=== PATIENT | male | born 1985 | race Two or more races ===

== ENCOUNTER 2021-04-27 11:12 | Outpatient (REF) | payer MEDICAID, SELFPAY ==
[2021-04-27 14:06] LABS: MANUAL DIFF FLAG NO
[2021-04-27 14:12] LABS: Basophils Percent Auto 0.4 % (0-2); Eosinophils Absolute Auto 0.1 X10*3/uL (0.0-0.4); Eosinophils Percent Auto 1.3 % (0-4); Hematocrit 42.5 % (42-52); Hemoglobin 14.9 g/dl (14.0-18.0); Imm Gran Abs Auto 0.02 X10*3/uL (0.00-0.03); Imm Gran Pct Auto 0.2 % (0.0-0.4); Lymphocytes Absolute Auto 3.2 X10*3/uL (1.2-4.9); Lymphocytes Percent Auto 38.2 % (20-40); Mean Corpuscular HGB Conc 35.1 g/dl (31.0-36.0); Mean Corpuscular Hemoglobin 30.3 pg (27.0-33.0); Mean Corpuscular Volume 86.6 fL (80-98); Mean Platelet Volume 10.8 fL (9.4-12.4); Monocytes Absolute Auto 0.6 X10*3/uL (0.1-1.2); Monocytes Percent Auto 7.6 % (2-11); Neutrophils Absolute Auto 4.4 X10*3/uL (2.0-8.3); Neutrophils Percent Auto 52.3 % (45-73); Platelet Count 350 X10*3/uL (160-400); Red Blood Count 4.91 X10*6/uL (4.60-5.80); White Blood Count 8.5 X10*3/uL (4.8-10.8)
[2021-04-27 14:50] LABS: Alanine Aminotransferase 75 U/L (0-40); Albumin Level 4.3 g/dL (3.5-5.0); Alkaline Phosphatase 73 U/L (39-117); Anion Gap 11 (12-20); Aspartate Amino Transferase 30 U/L (5-37); Bilirubin Total 0.5 mg/dL (0.0-1.0); Blood Urea Nitrogen 11 mg/dL (9-16); C Reactive Protein 0.25 mg/dL (< or = 0.50); Calcium 9.1 mg/dL (8.4-10.2); Carbon Dioxide 25 mmol/L (22-29); Chloride 103 mmol/L (96-108); Estimated Glomerular Filt Rate > 60; Glucose Fasting 202 mg/dL (60-99); Potassium 4.3 mmol/L (3.3-5.1); Sodium 135 mmol/L (135-145); Total Protein 6.8 g/dL (6.5-8.0)
== END 2021-04-27 11:13 | disposition home or self-care (01) ==
LOC: HO.10HDL 11:12
PROVIDERS: Visit Provider Internal Medicine
DX: M54.9 Dorsalgia, unspecified (principal); Z83.6 Family history of other diseases of the respiratory system
CPT/HCPCS: 36415; 80053; 82550; 85025; 86140

== ENCOUNTER 2021-05-05 07:10 | Outpatient (REF) | payer MEDICAID, SELFPAY ==
--- NOTE | ~2021-05-05 | XR_ITS ---
EXAMINATION: CR X-RAY PRE-MRI SCREENING CLINICAL INFORMATION: Pre-MRI screening, rule out foreign body. COMPARISON: None TECHNIQUE: 3 views of the orbits were obtained. FINDINGS: No radiopaque foreign body is seen. The bony orbits are intact. The paranasal sinuses are clear. There is no acute fracture. The soft tissues are unremarkable. XR/XR pre mri screening IMPRESSION: Unremarkable orbits. No radiopaque foreign body.
--- NOTE | ~2021-05-05 | MR_ITS ---
EXAMINATION: MR THORACIC SPINE WITHOUT CONTRAST CLINICAL INFORMATION: Back pain. Right arm weakness, numbness, finger numbness or weakness. Thoracic strain. Evaluate for cord injury. COMPARISON: Thoracic spine radiographs dated 03/19/2019. TECHNIQUE: MRI of the thoracic spine was obtained using routine sequences without contrast. FINDINGS: VERTEBRAL BODIES AND PARASPINAL STRUCTURES: Normal vertebral body alignment. The thoracic kyphosis is maintained. No acute fracture or subluxation. No loss of vertebral body height. Mild multilevel loss of intervertebral disc height with disc desiccation within the midthoracic spine. No marrow edema to suggest acute osseous injury. The visualized paraspinal soft tissues are unremarkable. No abnormal signal within the visualized cord. No evidence of cord injury. Probable vertebral body hemangioma within T8. SPINAL LEVELS: C7-T1: No significant disc bulge. No central canal or neural foraminal stenosis. T1-T2: No significant disc bulge. No central canal or neural foraminal stenosis. T2-T3: No significant disc bulge. No central canal or neural foraminal stenosis. T3-T4: No significant disc bulge. No central canal or neural foraminal stenosis. T4-T5: No significant disc bulge. No central canal or neural foraminal stenosis. T5-T6: No significant disc bulge. No central canal or neural foraminal stenosis. T6-T7: No significant disc bulge. No central canal or neural foraminal stenosis. T7-T8: Minimal broad-based disc bulge which partially effaces the ventral thecal sac. No significant neural foraminal stenosis. T8-T9: No significant disc bulge. No central canal or neural foraminal stenosis. T9-T10: No significant disc bulge. No central canal or neural foraminal stenosis. T10-T11: No significant disc bulge. No central canal or neural foraminal stenosis. T11-T12: No significant disc bulge. No central canal or neural foraminal stenosis. T12-L1: No significant disc bulge. No central canal or neural foraminal stenosis. MR/MR thoracic spine wo con IMPRESSION: 1. No acute osseous injury. No evidence of acute cord injury. 2. Minimal broad-based disc bulge at T7-T8 which partially effaces the ventral thecal sac. No significant central canal or neural foraminal stenosis.
== END 2021-05-05 07:11 | disposition home or self-care (01) ==
LOC: HO.MRI 07:10
PROVIDERS: PCP Internal Medicine; Visit Provider Internal Medicine
DX: S29.012A Strain of muscle and tendon of back wall of thorax, initial encounter (principal); V89.2XXA Person injured in unspecified motor-vehicle accident, traffic, initial encounter; Y93.9 Activity, unspecified; Y92.9 Unspecified place or not applicable; Y99.9 Unspecified external cause status
CPT/HCPCS: 72146

== ENCOUNTER 2021-06-15 12:58 | Outpatient (REF) | payer MEDICAID, SELFPAY ==
[2021-06-15 13:55] LABS: Anion Gap 14 (12-20); Blood Urea Nitrogen 12 mg/dL (9-16); Calcium 9.7 mg/dL (8.4-10.2); Carbon Dioxide 23 mmol/L (22-29); Chloride 102 mmol/L (96-108); Estimated Glomerular Filt Rate > 60; Glucose Random 383 mg/dL (60-115); Potassium 4.4 mmol/L (3.3-5.1); Sodium 135 mmol/L (135-145)
[2021-06-15 14:22] LABS: Estimated Average Glucose 266 mg/dL; Hemoglobin A1c % 10.9 %
[2021-06-16 04:41] LABS: ~HepC Num1 0.09 S/CO (0.00-0.79); ~Hepatitis C Antibody Nonreactive (Nonreactive)
[2021-06-16 04:51] LABS: ~Hepatitis B Surface Antibody NONREACTIVE (Nonreactive)
== END 2021-06-15 12:59 | disposition home or self-care (01) ==
LOC: HO.LAB 12:58
PROVIDERS: PCP Internal Medicine; Visit Provider Internal Medicine
DX: Z01.84 Encounter for antibody response examination (principal); Z11.59 Encounter for screening for other viral diseases; R73.9 Hyperglycemia, unspecified
CPT/HCPCS: 36415; 80048; 83036; 86706; 86803

== ENCOUNTER 2021-12-06 09:28 | Emergency (ER) | payer MEDICAID, SELFPAY ==
--- NOTE | ~2021-12-06 | CT_ITS ---
EXAMINATION: CT ABDOMEN AND PELVIS WITHOUT CONTRAST CLINICAL INFORMATION: Left lower quadrant pain COMPARISON: None TECHNIQUE: Multidetector volumetric imaging was performed from the superior aspect of the liver through the pubic symphysis. Sagittal and coronal reformatted images were obtained on the technologist's workstation. This CT examination was performed using dose optimization techniques as appropriate, variously including the following: *Automated exposure control *Adjustment of mA and/or kV according to patient size (this includes techniques or standardized protocols for targeted exams where dose is matched to indication/reason for exam; i.e. extremities or head) *Use of iterative reconstruction technique DLP: 673 mGy-cm FINDINGS: LUNG BASES: The visualized lung bases are unremarkable. LIVER, GALLBLADDER, AND BILIARY TREE: The liver is normal in size, shape, and attenuation. No focal hepatic lesion or biliary ductal dilatation is present. The gallbladder is unremarkable with no evidence of radiopaque gallstones, gallbladder wall thickening, or obvious pericholecystic inflammatory changes. PANCREAS: Unremarkable. SPLEEN: Unremarkable. ADRENAL GLANDS: Unremarkable. KIDNEYS AND URETERS: The kidneys are normal in size, shape, and attenuation. No hydronephrosis, hydroureter, or calculi seen. No perinephric stranding. BLADDER: Unremarkable. GASTROINTESTINAL TRACT: There is mild diverticulosis colon. The small and large bowel are otherwise unremarkable. The appendix is unremarkable. ABDOMINAL WALL: There is a small umbilical and right inguinal hernias containing fat. LYMPH NODES: Normal. VASCULAR: Unremarkable. PELVIC VISCERA: Unremarkable. OSSEOUS STRUCTURES: Unremarkable. CT/CT abdomen pelvis wo con IMPRESSION: Mild diverticulosis colon. No evidence of diverticulitis. Fleischner guidelines were followed.
[2021-12-06 09:37] VITALS: BP 123/80; PULSE 83; RESP 16; TEMP 36.9; O2SAT 99; BMI 33.3
--- NOTE | 2021-12-06 09:45 | ED.ABDPAIN ---
HPI - Abdominal Pain General Chief Complaint: Abdominal Pain Stated Complaint: N/V Time Seen by Provider: 12/06/21 09:34 Source: patient Mode of arrival: EMS Limitations: no limitations History of Present Illness HPI narrative: 35 yo male with hx of DM on glipizide since july does not check his sugars. States one week ago he was bored and sice then he feels just unwell. He has palpitations at times, LLQ pain, diarrhea, states his therapist told him his BS might be off. He has not been on any anxiety medications in the past. He denies known depression, isn't working right now, lives with his fiancee. MD elicited complaint: abdominal pain Pertinent past history: none Onset (ago): week(s) (1) Pain Consistency: intermittent Location: LLQ Severity: mild Quality: aching Radiation: none Migration to: no migration Exacerbating factors: nothing Relieving factors: nothing Context: other (new dx of DM, anxiety - therapy since april no medications) Associated symptoms: nausea, diarrhea and other (palpitations, anxiety, dizziness at time) Related Data Allergies Allergy/AdvReac Type Severity Reaction Status Date / Time No Known Allergies Allergy Unverified 05/13/20 19:36 [No Known Allergies*] Review of Systems Review of Systems Constitutional : No Weight loss, No Fever, No Chills ENT/Mouth : No sore throat, No Rhinorrhea Eyes: No Swelling, No Redness Cardiovascular : No Chest Pain, No SOB, NoEdema Respiratory : No Cough, No Sputum, No Wheezing Gastrointestinal : Positive Nausea, no Vomiting, positive Diarrhea, positive abdominal Pain, No Hematochezia, No Melena Genitourinary : No Dysuria, No Urinary Frequency, No Hematuria, No Urgency Musculoskeletal : No joint pain, No Myalgias, No Joint Swelling Skin : No Skin Lesions, No rash Neuro : No Weakness, No Numbness, pos Dizziness, No Headache Psych : pos Anxiety/Panic, No Depression Heme/Lymph: No Bruising, No Lymphadenopathy Endocrine : No Polyuria, No Polydipsia All other systems reviewed and are negative. FOR[facility]LY [facility] Past Medical History Medical History Diabetes Social History Social History Patient Tobacco Use Status: Never used Tobacco Substance Use Type: Marijuana Advance Directives: No Advance Directives Information Provided: No Physical Exam ED Vital Signs: Vital Signs - 24 hr 12/06/21 09:37 Temperature 98.4 F Pulse Rate 83 Respiratory Rate 16 Blood Pressure 123/80 Pulse Oximetry 99 BMI result Body Mass Index 33.3 Appearance: Alert. Oriented X3. No acute distress. Very anxious Eyes: Pupils equal, round and reactive to light. ENT: Pharynx normal. Neck: Normal inspection. Neck supple. CVS: Normal heart rate and rhythm. Pulses normal. Respiratory: No respiratory distress. Breath sounds normal. Abdomen: Soft and obese, mild LLQ ttp no rebound Skin: Skin warm and dry. Normal skin color. Normal skin turgor. Extremities: No lower extremity edema. No calf ttp Neuro: Oriented X 3. No motor deficit. No sensory deficit. Course Course Course Narrative: BS 146, has no gap, UA likely dehydration will hydrate and DC home discussed with the patient he needs to see his doctor as well in follow up to discuss his [place] terminal agent anxiety MDM - Abdominal Pain MDM Narrative Medical decision making narrative: 35 yo male with hx of DM since july on glipizide but not checking BS, he has been in therapy as well for anxiety - not on medications comes in with several complaints including palpitations, dizziness, diarrhea, LLQ pain - at this time he is very anxious on exam. Will obtain labs, UA, CT scan for diverticulitis/renal colic. IVF, toradol/zofran for symptoms. If negative may start on PRN anxiety medication if necessary. Lab Data Result diagrams: 12/06/21 09:54 12/06/21 09:54 Labs: Lab Results 12/06/21 12/06/21 12/06/21 Range/Units 09:54 09:54 09:54 WBC 9.9 (4.8-10.8) X10*3/uL RBC 4.64 (4.60-5.80) X10*6/uL Hgb 14.3 (14.0-18.0) g/dl Hct 39.9 L (42.0-52.0) % MCV 86.0 (80.0-98.0) fL MCH 30.8 (27.0-33.0) pg MCHC 35.8 (31.0-36.0) g/dl RDW 12.3 (11.0-16.0) % Plt Count 358 (160-400) X10*3/uL MPV 10.2 (9.4-12.4) fL Immature Gran % (Auto) 0.2 (0.0-0.4) % Neut % (Auto) 68.4 (45-73) % Lymph % (Auto) 24.2 (20-40) % [place] % (Auto) 6.3 (2-11) % Eos % (Auto) 0.6 (0-4) % Baso % (Auto) 0.3 (0-2) % Lymph # (Auto) 2.4 (1.2-4.9) X10*3/uL [place] # (Auto) 0.6 (0.1-1.2) X10*3/uL Eos # (Auto) 0.1 (0.0-0.4) X10*3/uL Baso # (Auto) 0.0 (0.0-0.2) X10*3/uL Abs Immat Gran (auto) 0.02 (0.00-0.03) X10*3/uL Absolute Neuts (auto) 6.8 (2.0-8.3) x10*3/uL Absolute Nucleated RBC 0.000 (0.0-0.012) X10*3/uL Nucleated RBC % (auto) 0.0 (0.0-0.2) /100WBC Sodium 137 (135-145) mmol/L Potassium 4.2 (3.3-5.1) mmol/L Chloride 107 (96-108) mmol/L Carbon Dioxide 21 L (22-29) mmol/L Anion Gap 13 (12-20) BUN 10 (9-16) mg/dL Creatinine 0.93 (0.5-1.4) mg/dL Estim Creat Clear Calc 114.7 Estimated GFR > 60 Random Glucose 146 H D (60-115) mg/dL Calcium 9.6 (8.4-10.2) mg/dL Magnesium 2.3 (1.6-2.6) mg/dL Total Bilirubin 0.6 (0.0-1.0) mg/dL Direct Bilirubin 0.2 (0.0-0.5) mg/dL AST 25 (5-37) U/L ALT 40 (0-40) U/L Alkaline Phosphatase 67 (39-117) U/L Troponin I High Sens < 3.5 (<3.5-35.0) ng/L Total Protein 7.3 (6.5-8.0) g/dL Albumin 4.3 (3.5-5.0) g/dL Lipase 17 (8-78) U/L Urine Color Urine Appearance Urine pH (5.0-8.0) Ur Specific [place] (1.005-1.025) Urine Protein (NEG-TRACE) MG/DL Urine Glucose (UA) (NEG) MG/DL Urine Ketones (NEG) MG/DL Urine Blood (NEG) Urine Nitrite (NEG) Ur Leukocyte Esterase (NEG) 12/06/21 Range/Units 11:52 WBC (4.8-10.8) X10*3/uL RBC (4.60-5.80) X10*6/uL Hgb (14.0-18.0) g/dl Hct (42.0-52.0) % MCV (80.0-98.0) fL MCH (27.0-33.0) pg MCHC (31.0-36.0) g/dl RDW (11.0-16.0) % Plt Count (160-400) X10*3/uL MPV (9.4-12.4) fL Immature Gran % (Auto) (0.0-0.4) % Neut % (Auto) (45-73) % Lymph % (Auto) (20-40) % [place] % (Auto) (2-11) % Eos % (Auto) (0-4) % Baso % (Auto) (0-2) % Lymph # (Auto) (1.2-4.9) X10*3/uL [place] # (Auto) (0.1-1.2) X10*3/uL Eos # (Auto) (0.0-0.4) X10*3/uL Baso # (Auto) (0.0-0.2) X10*3/uL Abs Immat Gran (auto) (0.00-0.03) X10*3/uL Absolute Neuts (auto) (2.0-8.3) x10*3/uL Absolute Nucleated RBC (0.0-0.012) X10*3/uL Nucleated RBC % (auto) (0.0-0.2) /100WBC Sodium (135-145) mmol/L Potassium (3.3-5.1) mmol/L Chloride (96-108) mmol/L Carbon Dioxide (22-29) mmol/L Anion Gap (12-20) BUN (9-16) mg/dL Creatinine (0.5-1.4) mg/dL Estim Creat Clear Calc Estimated GFR Random Glucose (60-115) mg/dL Calcium (8.4-10.2) mg/dL Magnesium (1.6-2.6) mg/dL Total Bilirubin (0.0-1.0) mg/dL Direct Bilirubin (0.0-0.5) mg/dL AST (5-37) U/L ALT (0-40) U/L Alkaline Phosphatase (39-117) U/L Troponin I High Sens (<3.5-35.0) ng/L Total Protein (6.5-8.0) g/dL Albumin (3.5-5.0) g/dL Lipase (8-78) U/L Urine Color YELLOW Urine Appearance HAZY Urine pH 6.0 (5.0-8.0) Ur Specific [place] >= 1.030 H (1.005-1.025) Urine Protein TRACE (NEG-TRACE) MG/DL Urine Glucose (UA) NEG (NEG) MG/DL Urine Ketones 15 (NEG) MG/DL Urine Blood NEG (NEG) Urine Nitrite NEG (NEG) Ur Leukocyte Esterase NEG (NEG) ECG Data Attestation: I personally reviewed and interpreted this ECG as follows: ECG interpretation date: 12/06/21 ECG interpretation time: 10:23 Interpretation: Rate: 69 Rhythm: NSR [place]: normal Normal P waves. Normal GEE. Normal QRS complex. ST T wave : normal no GERMÁN qTC: normal prior studies: no acute ischemia The study has been interpreted contemporaneously by me. Discharge Plan Discharge Clinical Impression: Heart palpitations, Acute dehydration Diarrhea Qualifiers: Diarrhea type: unspecified type Qualified Code(s): R19.7 - Diarrhea, unspecified Patient Disposition: Home, Self-Care Instructions: Heart Palpitations (ED), Dehydration (ED), Acute Diarrhea (ED) Additional Instructions: return to ED for any worsening symptoms or concerns CT scan negative, BS 146, mild dehydration please follow up with your doctor Referrals: Abdiel Atkinson MD [Primary Care Provider] - 2 days
[2021-12-06] MEDS: 0.9 % Sodium Chloride 1,000 ML 999 ML IVCONT (09:58)
[2021-12-06] MEDS: ondansetron HCL 4 MG/2 ML VIAL IVPUSH (09:58)
[2021-12-06] MEDS: Ketorolac Tromethamine 15 MG/ML VIAL 30 MG IVPUSH (09:59)
[2021-12-06 10:01] LABS: MANUAL DIFF FLAG NO
--- NOTE | 2021-12-06 10:01 | ECG_ITS ---
Test Reason : abdominal pain Blood Pressure : / mmHG Vent. Rate : 069 BPM Atrial Rate : 069 BPM P-R Int : 136 ms QRS Dur : 098 ms QT Int : 402 ms P-R-T Axes : -16 036 010 degrees QTc Int : 430 ms Normal sinus rhythm Normal ECG No previous ECGs available Referred By: Becca Butler Electronically Signed By:Leo Lux
[2021-12-06 10:04] LABS: Basophils Percent Auto 0.3 % (0-2); Eosinophils Absolute Auto 0.1 X10*3/uL (0.0-0.4); Eosinophils Percent Auto 0.6 % (0-4); Hematocrit 39.9 % (42.0-52.0); Hemoglobin 14.3 g/dl (14.0-18.0); Imm Gran Abs Auto 0.02 X10*3/uL (0.00-0.03); Imm Gran Pct Auto 0.2 % (0.0-0.4); Lymphocytes Absolute Auto 2.4 X10*3/uL (1.2-4.9); Lymphocytes Percent Auto 24.2 % (20-40); Mean Corpuscular HGB Conc 35.8 g/dl (31.0-36.0); Mean Corpuscular Hemoglobin 30.8 pg (27.0-33.0); Mean Platelet Volume 10.2 fL (9.4-12.4); Monocytes Absolute Auto 0.6 X10*3/uL (0.1-1.2); Monocytes Percent Auto 6.3 % (2-11); Neutrophils Absolute Auto 6.8 x10*3/uL (2.0-8.3); Neutrophils Percent Auto 68.4 % (45-73); Platelet Count 358 X10*3/uL (160-400); Red Blood Count 4.64 X10*6/uL (4.60-5.80); Red Cell Distribution Width 12.3 % (11.0-16.0); White Blood Count 9.9 X10*3/uL (4.8-10.8)
[2021-12-06 10:25] LABS: Alanine Aminotransferase 40 U/L (0-40); Albumin Level 4.3 g/dL (3.5-5.0); Alkaline Phosphatase 67 U/L (39-117); Anion Gap 13 (12-20); Aspartate Amino Transferase 25 U/L (5-37); Bilirubin Direct 0.2 mg/dL (0.0-0.5); Bilirubin Total 0.6 mg/dL (0.0-1.0); Blood Urea Nitrogen 10 mg/dL (9-16); Calcium 9.6 mg/dL (8.4-10.2); Carbon Dioxide 21 mmol/L (22-29); Chloride 107 mmol/L (96-108); Creatinine Clr Calc Pharmacy 114.7; Estimated Glomerular Filt Rate > 60; Glucose Random 146 mg/dL (60-115); Lipase 17 U/L (8-78); Magnesium 2.3 mg/dL (1.6-2.6); Potassium 4.2 mmol/L (3.3-5.1); Sodium 137 mmol/L (135-145); Total Protein 7.3 g/dL (6.5-8.0)
[2021-12-06 10:37] LABS: Troponin-I High Sensitivity < 3.5 ng/L (<3.5-35.0)
[2021-12-06 11:56] LABS: Appearance Urine HAZY; Color Urine YELLOW; Glucose Urine UA NEG (NEG); Leukocyte Esterase Urine NEG (NEG); Nitrite Urine NEG (NEG); Specific Gravity - Urine >= 1.030 (1.005-1.025); Urine Blood NEG (NEG); Urine Ketones 15 MG/DL (NEG); Urine Protein TRACE MG/DL (NEG-TRACE)
[2021-12-06] MEDS: 0.9 % Sodium Chloride 1,000 ML 999 ML IV (12:12)
== END 2021-12-06 13:10 | disposition home or self-care (01) ==
PROVIDERS: Emergency Provider Emergency Medicine; PCP Internal Medicine
DX: R00.2 Palpitations (principal); E86.0 Dehydration; R19.7 Diarrhea, unspecified; R10.32 Left lower quadrant pain; R11.2 Nausea with vomiting, unspecified; E11.9 Type 2 diabetes mellitus without complications
CPT/HCPCS: 36415; 74176; 80048; 80076; 81003; 83690; 83735; 84484; 85025; 93005; 96361; 96374; 96375; 99284; 99285; J1885; J2405

== ENCOUNTER 2021-12-22 09:36 | Outpatient (REF) | payer MEDICAID, SELFPAY ==
[2021-12-22 11:13] LABS: Estimated Average Glucose 140 mg/dL; Hemoglobin A1c % 6.5 %
[2021-12-22 11:17] LABS: Microalbum/Creatinine Ratio Ur 10.9 ug/mg cr
[2021-12-22 12:20] LABS: Anion Gap 12 (12-20); Blood Urea Nitrogen 12 mg/dL (9-16); Calcium 9.5 mg/dL (8.4-10.2); Carbon Dioxide 24 mmol/L (22-29); Chloride 105 mmol/L (96-108); Estimated Glomerular Filt Rate > 60; Glucose Random 118 mg/dL (60-115); Potassium 4.4 mmol/L (3.3-5.1); Sodium 137 mmol/L (135-145)
== END 2021-12-22 09:37 | disposition home or self-care (01) ==
LOC: HO.LAB 09:36
PROVIDERS: PCP Internal Medicine; Visit Provider Internal Medicine
DX: E11.9 Type 2 diabetes mellitus without complications (principal)
CPT/HCPCS: 36415; 80048; 82043; 83036

== ENCOUNTER 2022-04-20 12:07 | Emergency (ER) | payer MEDICAID, SELFPAY ==
[2022-04-20 12:17] VITALS: BP 168/80; PULSE 110; O2SAT 97
[2022-04-20 12:49] VITALS: BP 139/78; PULSE 78; RESP 16; TEMP 37.2; O2SAT 97
[2022-04-20 13:05] VITALS: BMI 33.3
[2022-04-20 13:25] LABS: MANUAL DIFF FLAG NO
[2022-04-20 13:26] LABS: Basophils Absolute Auto 0.1 X10*3/uL (0.0-0.2); Basophils Percent Auto 0.5 % (0-2); Eosinophils Absolute Auto 0.2 X10*3/uL (0.0-0.4); Eosinophils Percent Auto 2.2 % (0-4); Hematocrit 41.1 % (42.0-52.0); Hemoglobin 14.6 g/dl (14.0-18.0); Imm Gran Abs Auto 0.03 X10*3/uL (0.00-0.03); Imm Gran Pct Auto 0.3 % (0.0-0.4); Lymphocytes Absolute Auto 3.8 X10*3/uL (1.2-4.9); Lymphocytes Percent Auto 36.1 % (20-40); Mean Corpuscular HGB Conc 35.5 g/dl (31.0-36.0); Mean Corpuscular Hemoglobin 30.4 pg (27.0-33.0); Mean Corpuscular Volume 85.6 fL (80.0-98.0); Mean Platelet Volume 9.9 fL (9.4-12.4); Monocytes Absolute Auto 0.8 X10*3/uL (0.1-1.2); Monocytes Percent Auto 7.6 % (2-11); Neutrophils Absolute Auto 5.6 x10*3/uL (2.0-8.3); Neutrophils Percent Auto 53.3 % (45-73); Platelet Count 334 X10*3/uL (160-400); Red Cell Distribution Width 12.1 % (11.0-16.0); White Blood Count 10.5 X10*3/uL (4.8-10.8)
[2022-04-20 13:52] LABS: Anion Gap 12 (12-20); Blood Urea Nitrogen 13 mg/dL (9-16); Calcium 9.1 mg/dL (8.4-10.2); Carbon Dioxide 26 mmol/L (22-29); Chloride 104 mmol/L (96-108); Creatinine Clr Calc Pharmacy 100.6; Estimated Glomerular Filt Rate > 60; Glucose Random 163 mg/dL (60-115); Potassium 4.2 mmol/L (3.3-5.1); Sodium 138 mmol/L (135-145)
== END 2022-04-20 21:20 | disposition left against medical advice (07) ==
PROVIDERS: Emergency Provider Emergency Medicine; PCP Internal Medicine
DX: M79.662 Pain in left lower leg (principal); M79.661 Pain in right lower leg; S80.12XA Contusion of left lower leg, initial encounter; S80.11XA Contusion of right lower leg, initial encounter; X58.XXXA Exposure to other specified factors, initial encounter; Y93.9 Activity, unspecified; Y92.9 Unspecified place or not applicable; Y99.9 Unspecified external cause status; E11.9 Type 2 diabetes mellitus without complications
CPT/HCPCS: 36415; 80048; 85025; 99282; 99283

== ENCOUNTER 2022-04-20 15:10 | Outpatient (REF) | payer MEDICAID, SELFPAY ==
[2022-04-20 15:26] LABS: MANUAL DIFF FLAG NO
[2022-04-20 15:50] LABS: Basophils Absolute Auto 0.1 X10*3/uL (0.0-0.2); Basophils Percent Auto 0.4 % (0-2); Eosinophils Absolute Auto 0.2 X10*3/uL (0.0-0.4); Eosinophils Percent Auto 1.9 % (0-4); Hemoglobin 14.7 g/dl (14.0-18.0); Imm Gran Abs Auto 0.04 X10*3/uL (0.00-0.03); Imm Gran Pct Auto 0.3 % (0.0-0.4); Lymphocytes Absolute Auto 4.5 X10*3/uL (1.2-4.9); Lymphocytes Percent Auto 37.9 % (20-40); Mean Corpuscular Hemoglobin 29.9 pg (27.0-33.0); Mean Corpuscular Volume 85.5 fL (80.0-98.0); Mean Platelet Volume 10.6 fL (9.4-12.4); Monocytes Absolute Auto 0.8 X10*3/uL (0.1-1.2); Monocytes Percent Auto 7.1 % (2-11); Neutrophils Absolute Auto 6.2 x10*3/uL (2.0-8.3); Neutrophils Percent Auto 52.4 % (45-73); Platelet Count 342 X10*3/uL (160-400); Red Blood Count 4.91 X10*6/uL (4.60-5.80); Red Cell Distribution Width 12.1 % (11.0-16.0); White Blood Count 11.8 X10*3/uL (4.8-10.8)
[2022-04-20 15:55] LABS: Partial Thromboplastin Time 30.9 SEC (26.0-36.4)
[2022-04-20 15:58] LABS: Estimated Average Glucose 180 mg/dL; Hemoglobin A1c % 7.9 %
[2022-04-20 16:14] LABS: Alanine Aminotransferase 35 U/L (0-40); Albumin Level 4.6 g/dL (3.5-5.0); Alkaline Phosphatase 83 U/L (39-117); Anion Gap 16 (12-20); Aspartate Amino Transferase 22 U/L (5-37); Bilirubin Total 0.6 mg/dL (0.0-1.0); Blood Urea Nitrogen 13 mg/dL (9-16); Calcium 9.3 mg/dL (8.4-10.2); Carbon Dioxide 25 mmol/L (22-29); Chloride 102 mmol/L (96-108); Estimated Glomerular Filt Rate > 60; Glucose Random 137 mg/dL (60-115); Potassium 4.3 mmol/L (3.3-5.1); Sodium 139 mmol/L (135-145); Total Protein 7.8 g/dL (6.5-8.0)
== END 2022-04-20 15:11 | disposition home or self-care (01) ==
LOC: HO.LAB 15:10
PROVIDERS: PCP Internal Medicine; Visit Provider Internal Medicine
DX: E11.9 Type 2 diabetes mellitus without complications (principal); S80.10XD Contusion of unspecified lower leg, subsequent encounter
CPT/HCPCS: 36415; 80053; 83036; 85025; 85610; 85730

== ENCOUNTER 2022-09-11 15:37 | Outpatient (REF) | payer MEDICAID, SELFPAY ==
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
== END 2022-09-11 15:38 | disposition home or self-care (01) ==
LOC: HO.CT 15:37
PROVIDERS: PCP Internal Medicine; Visit Provider Internal Medicine
DX: Z86.73 Personal history of transient ischemic attack (TIA), and cerebral infarction without residual deficits (principal)
CPT/HCPCS: 72125

== ENCOUNTER 2023-03-19 06:20 | Outpatient (REF) | payer MEDICAID, SELFPAY ==
[2023-03-19 06:34] LABS: MANUAL DIFF FLAG NO
[2023-03-19 07:20] LABS: Basophils Percent Auto 0.4 % (0-2); Eosinophils Absolute Auto 0.1 X10*3/uL (0.0-0.4); Eosinophils Percent Auto 0.9 % (0-4); Hematocrit 43.7 % (42.0-52.0); Hemoglobin 15.5 g/dl (14.0-18.0); Imm Gran Abs Auto 0.03 X10*3/uL (0.00-0.03); Imm Gran Pct Auto 0.3 % (0.0-0.4); Lymphocytes Absolute Auto 4.6 X10*3/uL (1.2-4.9); Lymphocytes Percent Auto 41.8 % (20-40); Mean Corpuscular HGB Conc 35.5 g/dl (31.0-36.0); Mean Corpuscular Hemoglobin 30.2 pg (27.0-33.0); Mean Corpuscular Volume 85.2 fL (80.0-98.0); Mean Platelet Volume 11.7 fL (9.4-12.4); Monocytes Absolute Auto 0.8 X10*3/uL (0.1-1.2); Monocytes Percent Auto 7.5 % (2-11); Neutrophils Absolute Auto 5.4 x10*3/uL (2.0-8.3); Neutrophils Percent Auto 49.1 % (45-73); Platelet Count 254 X10*3/uL (160-400); Red Blood Count 5.13 X10*6/uL (4.60-5.80); Red Cell Distribution Width 12.1 % (11.0-16.0)
[2023-03-19 07:58] LABS: Estimated Average Glucose 289 mg/dL; Hemoglobin A1c % 11.7 %
[2023-03-19 08:12] LABS: Alanine Aminotransferase 59 U/L (0-40); Albumin Level 4.1 g/dL (3.5-5.0); Alkaline Phosphatase 83 U/L (39-117); Anion Gap 14 (12-20); Aspartate Amino Transferase 36 U/L (5-37); Bilirubin Total 0.7 mg/dL (0.0-1.0); Blood Urea Nitrogen 10 mg/dL (9-16); Calcium 9.1 mg/dL (8.4-10.2); Carbon Dioxide 23 mmol/L (22-29); Chloride 103 mmol/L (96-108); Estimated Glomerular Filt Rate > 60; Potassium 4.3 mmol/L (3.3-5.1); Sodium 136 mmol/L (135-145); Total Protein 7.5 g/dL (6.5-8.0)
[2023-03-19 09:03] LABS: Creatinine Urine 162.39 mg/dL
[2023-03-19 09:04] LABS: Glucose Random 350 mg/dL (60-115)
== END 2023-03-19 06:21 | disposition home or self-care (01) ==
LOC: HO.LAB 06:20
PROVIDERS: PCP Internal Medicine; Visit Provider Internal Medicine
DX: E11.9 Type 2 diabetes mellitus without complications (principal); J45.909 Unspecified asthma, uncomplicated; G62.9 Polyneuropathy, unspecified
CPT/HCPCS: 36415; 80053; 82043; 83036; 85025

== ENCOUNTER 2023-06-07 07:14 | Outpatient (REF) | payer MEDICAID, SELFPAY ==
--- NOTE | ~2023-06-07 | MR_ITS ---
EXAMINATION: MR CERVICAL SPINE WITHOUT CONTRAST CLINICAL INFORMATION: Myelopathy, evaluate for cord compression COMPARISON: CT cervical spine 09/11/2022 TECHNIQUE: MRI of the cervical spine was obtained using routine sequences without contrast. FINDINGS: Straightening of the normal cervical lordosis. Mild levocurvature of the cervicothoracic spine. Grade 1 anterolisthesis of C3-C4 and C4-C5. Vertebral body heights are maintained. No expansile or destructive osseous lesion. The cervical spinal cord is normal in signal. C2-C3: No significant spinal canal or neural foraminal stenosis. C3-C4: No significant spinal canal or neural foraminal stenosis. C4-C5: Disc bulge and osteophytic ridging with large right central/subarticular disc protrusion which indents the ventral thecal sac/spinal cord with mild canal stenosis. The neural foramen remain patent. C5-C6: Disc osteophyte complex with central disc protrusion that indents the ventral thecal sac without significant associated canal stenosis. Mild narrowing of the left neural foramen secondary to uncovertebral arthropathy. C6-C7: Disc osteophyte complex with eccentric right disc protrusion which asymmetrically effaces the right ventral thecal sac and extends into the right proximal neural foramen. There is mild canal stenosis. Moderate right and mild left neural foraminal stenosis. C7-T1: No significant spinal canal stenosis. Moderate right neural foraminal stenosis secondary to asymmetric uncovertebral arthropathy. MR/MR cervical spine wo con IMPRESSION: At C4-C5 there is a disc bulge with superimposed right central/subarticular disc protrusion which indents the ventral thecal sac/spinal cord with mild canal stenosis. There is moderate right neural foraminal stenosis at C6-C7 and C7-T1.
== END 2023-06-07 07:15 | disposition home or self-care (01) ==
LOC: HO.MRI 07:14
PROVIDERS: PCP Internal Medicine; Visit Provider Psychiatry & Neurology Neurology
DX: G95.20 Unspecified cord compression (principal)
CPT/HCPCS: 72141

== ENCOUNTER 2023-10-04 09:51 | Outpatient (REF) | payer MEDICAID, SELFPAY ==
[2023-10-04 10:54] LABS: Estimated Average Glucose 275 mg/dL; Hemoglobin A1c % 11.2 % (<6.0)
[2023-10-04 11:12] LABS: Anion Gap 13 (12-20); Blood Urea Nitrogen 12 mg/dL (9-16); Calcium 9.7 mg/dL (8.4-10.2); Carbon Dioxide 25 mmol/L (22-29); Chloride 101 mmol/L (96-108); Estimated Glomerular Filt Rate > 60; Glucose Random 233 mg/dL (60-115); Sodium 135 mmol/L (135-145)
== END 2023-10-04 09:52 | disposition home or self-care (01) ==
LOC: HO.LAB 09:51
PROVIDERS: PCP Internal Medicine; Visit Provider Internal Medicine
DX: E11.9 Type 2 diabetes mellitus without complications (principal); G62.9 Polyneuropathy, unspecified
CPT/HCPCS: 36415; 80048; 83036

== ENCOUNTER 2023-11-16 05:40 | Emergency (ER) | payer MEDICAID, SELFPAY ==
--- NOTE | 2023-11-16 | ECG_ITS ---
Test Reason : VOMITING Blood Pressure : / mmHG Vent. Rate : 076 BPM Atrial Rate : 076 BPM P-R Int : 146 ms QRS Dur : 098 ms QT Int : 374 ms P-R-T Axes : 012 032 005 degrees QTc Int : 420 ms Normal sinus rhythm Normal ECG When compared with ECG of 06-DEC-2021 10:15, No significant change was found Referred By: Generic ED Physician Electronically Signed By:KUSHAL BAR
--- NOTE | ~2023-11-16 | CT_ITS ---
EXAMINATION: CT CHEST WITH CONTRAST CLINICAL INFORMATION: Hemoptysis COMPARISON: None available. TECHNIQUE: Multidetector volumetric CT imaging of the chest was obtained after the administration of 60 mL of Omnipaque 350 intravenous contrast without immediate adverse reactions. Axial MIP volume rendering provided. Sagittal and coronal reformatted images were obtained. This CT examination was performed using dose optimization techniques as appropriate, variously including the following: *Automated exposure control *Adjustment of mA and/or kV according to patient size (this includes techniques or standardized protocols for targeted exams where dose is matched to indication/reason for exam; i.e. extremities or head) *Use of iterative reconstruction technique DLP: 343 mGy-cm FINDINGS: Examination is somewhat degraded by respiratory motion. RETAIL COVERAGE MERCHANDISER: Unremarkable LUNGS: A 2 mm nodule abutting the right minor fissure likely reflects a subpleural lymph node. No suspicious mass, nodule or consolidation is evident in either lung. There is no evidence of bronchiectasis or interstitial lung disease. The trachea and major bronchi are patent. MEDIASTINUM: The mediastinum is normal. A calcified right paratracheal lymph node presumably reflects the sequela of prior granulomatous exposure. PLEURA: There is no pleural effusion. No pleural mass or thickening. AXILLA: No lymphadenopathy. UPPER ABDOMEN: The liver is diffusely low in attenuation consistent with steatosis. There are no adrenal masses. OSSEOUS STRUCTURES: Unremarkable. CT/CT chest w IV con IMPRESSION: 1. No acute findings in the chest to account for the patient's hemoptysis. 2. Marked hepatic steatosis. 3. Right paratracheal calcified node, likely reflecting prior granulomatous exposure. Fleischner guidelines were followed.
[2023-11-16 05:47] VITALS: BP 118/67; BP 132/98; PULSE 86; PULSE 92; RESP 15; TEMP 36.9; O2SAT 96; BMI 34.6
[2023-11-16 06:04] LABS: Basophils Percent Auto 0.4 % (0-2); Eosinophils Absolute Auto 0.2 X10*3/uL (0.0-0.4); Eosinophils Percent Auto 1.4 % (0-4); Hematocrit 41.8 % (42.0-52.0); Imm Gran Abs Auto 0.04 X10*3/uL (0.00-0.03); Imm Gran Pct Auto 0.4 % (0.0-0.4); Lymphocytes Absolute Auto 3.1 X10*3/uL (1.2-4.9); Lymphocytes Percent Auto 28.5 % (20-40); MANUAL DIFF FLAG NO; Mean Corpuscular HGB Conc 35.9 g/dl (31.0-36.0); Mean Corpuscular Hemoglobin 30.9 pg (27.0-33.0); Mean Platelet Volume 10.3 fL (9.4-12.4); Monocytes Absolute Auto 0.9 X10*3/uL (0.1-1.2); Monocytes Percent Auto 8.2 % (2-11); Neutrophils Absolute Auto 6.6 x10*3/uL (2.0-8.3); Neutrophils Percent Auto 61.1 % (45-73); Platelet Count 336 X10*3/uL (160-400); Red Blood Count 4.86 X10*6/uL (4.60-5.80); Red Cell Distribution Width 12.1 % (11.0-16.0); White Blood Count 10.8 X10*3/uL (4.8-10.8)
--- NOTE | 2023-11-16 06:05 | PC.NURSE ---
pt biba from home reporting 2 days of nausea, vomiting and diarrhea. pt reports blood tinged phlegm like vomitis. pt reports daily use of marijuana. pt denies being around sick contacts. 20G placed in let forearm, labs obtained and sent to lab. pt denies abdominal pain and chest pain. pt normal sinus on tele 85-87bpm.
--- NOTE | 2023-11-16 06:18 | ED.GENADULT ---
[facility] - General Adult General Chief complaint: Nausea/Vomiting/Diarrhea Stated complaint: n/v blood x 2 days Time Seen by Provider: 11/16/23 05:56 Source: patient Mode of arrival: EMS History of Present Illness HPI narrative: 37-year-old male with history of everyday smoking presents with 3 days of hemoptysis which then led him to have nausea and some vomiting. Otherwise, he denies any fever, chills. He is also noted be diabetic on multiple medications, he does report to new diabetic medications Trulicity and Jardiance Related Data Allergies Allergy/AdvReac Type Severity Reaction Status Date / Time No Known Allergies Allergy Verified 11/16/23 05:46 [No Known Allergies*] Review of Systems Review of Systems: Pertinent positives and negatives as stated in [facility] Past Medical History Source: nursing notes reviewed Medical History Diabetes Social History Social History Patient Tobacco Use Status: Never used Tobacco Smoked in Last 30 Days: No Use of substances other than those prescribed or required for medical reasons: Yes Substance Use Type: Marijuana Substance Use Frequency: Daily Advance Directives: No Advance Directives Information Provided: Yes Physical Exam ED Vital Signs: Vital Signs - 24 hr 11/16/23 05:47 Temperature 98.4 F Pulse Rate 92 Respiratory Rate 15 Blood Pressure 118/67 Pulse Oximetry 96 Oxygen Delivery Method Room Air BMI result Body Mass Index 34.6 VITAL SIGNS: Reviewed. GENERAL: Well developed, well nourished, in no acute distress. HEAD: Normocephalic/atraumatic EYES: PERRLA, EOMI EARS: Ext canals without abnormality NOSE: Nares patent bilateral OROPHARYNX: no oral lesions noted, posterior pharynx clear NECK: Supple, no adenopathy LUNGS: Normal breath sounds. No adventitious sounds or accessory muscle use. SpO2<96> CARDIOVASCULAR: Regular rate and rhythm without noted murmurs ABDOMEN: Soft, non-tender, non-distended with bowel sounds. MUSCULOSKELETAL: No tenderness, deformities, or effusions noted on gross inspection. EXTREMITIES: No cyanosis, clubbing or edema. SKIN: Inspection of the skin reveals no rashes NEUROLOGIC: Alert and oriented x 4. Strength and sensation to light touch were grossly intact x 4. Medications Administered Discontinued Medications Generic Name Dose Route Start Last Admin Trade Name Bernardino PRN Reason Stop Dose Admin Iohexol 65 ml 11/16/23 06:41 11/16/23 06:41 Iohexol 350 Mg/Ml 100 Ml Infus..Btl IV 11/16/23 06:42 65 ml ONCE ONE Administration Medical Decision Making Medical Decision Making [facility] Narrative: 37-year-old male who reports copious amounts blood in his phlegm. I reviewed all investigations and hematologic indices are negative for leukocytosis/anemia/thrombocytopenia. Chemistry indices do not demonstrate an SYED/electrolytes/liver enzyme derangements. Viral testing is negative for influenza/COVID-19/RSV. Signed out to Dr Butler Differential Diagnosis Differential Diagnoses: The differential diagnosis associated with the presentation includes Please see the discussion above Admission/Observation Consideration of admission/observation: Escalation of care including admission/observation considered Please see the discussion above Lab Data [facility] Lab Attestation statement: I reviewed the patient's lab results. Please see the discussion above 11/16/23 05:59 11/16/23 05:59 Labs: Lab Results 11/16/23 Range/Units 05:59 WBC 10.8 (4.8-10.8) X10*3/uL RBC 4.86 (4.60-5.80) X10*6/uL Hgb 15.0 (14.0-18.0) g/dl Hct 41.8 L (42.0-52.0) % MCV 86.0 (80.0-98.0) fL MCH 30.9 (27.0-33.0) pg MCHC 35.9 (31.0-36.0) g/dl RDW 12.1 (11.0-16.0) % Plt Count 336 D (160-400) X10*3/uL MPV 10.3 (9.4-12.4) fL Immature Gran % (Auto) 0.4 (0.0-0.4) % Neut % (Auto) 61.1 (45-73) % Lymph % (Auto) 28.5 (20-40) % [place]ima % (Auto) 8.2 (2-11) % Eos % (Auto) 1.4 (0-4) % Baso % (Auto) 0.4 (0-2) % Lymph # (Auto) 3.1 (1.2-4.9) X10*3/uL [place]ima # (Auto) 0.9 (0.1-1.2) X10*3/uL Eos # (Auto) 0.2 (0.0-0.4) X10*3/uL Baso # (Auto) 0.0 (0.0-0.2) X10*3/uL Abs Immat Gran (auto) 0.04 H (0.00-0.03) X10*3/uL Absolute Neuts (auto) 6.6 (2.0-8.3) x10*3/uL Absolute Nucleated RBC 0.000 (0.0-0.012) X10*3/uL Nucleated RBC % (auto) 0.0 (0.0-0.2) /100WBC Sodium 137 (135-145) mmol/L Potassium 4.0 (3.3-5.1) mmol/L Chloride 106 (96-108) mmol/L Carbon Dioxide 22 (22-29) mmol/L Anion Gap 13 (12-20) BUN 18 H (9-16) mg/dL Creatinine 0.86 (0.5-1.4) mg/dL Estim Creat Clear Calc 124.2 Estimated GFR > 60 Random Glucose 132 H (60-115) mg/dL Calcium 8.8 D (8.4-10.2) mg/dL Total Bilirubin 0.3 (0.0-1.0) mg/dL AST 24 (5-37) U/L ALT 37 (0-40) U/L Alkaline Phosphatase 66 (39-117) U/L Total Protein 7.4 (6.5-8.0) g/dL Albumin 4.2 (3.5-5.0) g/dL Influenza Type A (PCR) NEGATIVE (Negative) Influenza Type B (PCR) NEGATIVE (Negative) RSV RNA Qual (PCR) NEGATIVE (Negative) SARS-CoV-2 RNA (RT-PCR) NEGATIVE (Negative) Independent Interpretation I performed an independent interpretation of an: EKG Interpretation: Normal sinus rhythm, HR-76, no STEMI, CA/QRS/QTC is within normal limits. Discharge Plan Discharge Clinical Impression: Hemoptysis Patient Disposition: Still a Patient
[2023-11-16 06:23] LABS: Alanine Aminotransferase 37 U/L (0-40); Albumin Level 4.2 g/dL (3.5-5.0); Alkaline Phosphatase 66 U/L (39-117); Anion Gap 13 (12-20); Aspartate Amino Transferase 24 U/L (5-37); Bilirubin Total 0.3 mg/dL (0.0-1.0); Blood Urea Nitrogen 18 mg/dL (9-16); Calcium 8.8 mg/dL (8.4-10.2); Carbon Dioxide 22 mmol/L (22-29); Chloride 106 mmol/L (96-108); Creatinine Clr Calc Pharmacy 124.2; Estimated Glomerular Filt Rate > 60; Glucose Random 132 mg/dL (60-115); Sodium 137 mmol/L (135-145); Total Protein 7.4 g/dL (6.5-8.0)
--- NOTE | 2023-11-16 06:26 | PC.NURSE ---
pt to CT at this time.
[2023-11-16 06:41] LABS: Influenza A PCR NEGATIVE (Negative); Influenza B PCR NEGATIVE (Negative); Resp Syncy Virus RNA Qual PCR NEGATIVE (Negative); SARS COV2 PCR INHOUSE NEGATIVE (Negative)
[2023-11-16] MEDS: iohexoL 350 MG/ML 100 ML INFUS..BTL 65 ML IV (06:41)
[2023-11-16 06:43] VITALS: BP 117/79; PULSE 74; RESP 14; TEMP 36.6; O2SAT 94
[2023-11-16 08:08] VITALS: BP 108/74; PULSE 82; RESP 14; TEMP 36.9; O2SAT 97
== END 2023-11-16 08:09 | disposition home or self-care (01) ==
PROVIDERS: Student in an Organized Health Care Education/Training Program; Emergency Provider Emergency Medicine; PCP Internal Medicine
DX: R04.2 Hemoptysis (principal); E11.9 Type 2 diabetes mellitus without complications; Z11.52 Encounter for screening for COVID-19; Z20.828 Contact with and (suspected) exposure to other viral communicable diseases
CPT/HCPCS: 0241U; 71260; 80053; 85025; 93005; 99284; 99285; Q9967

== ENCOUNTER → 2023-11-16 06:44 | Outpatient (BNV) | payer MEDICAID, SELFPAY | PROVIDERS: Emergency Provider Emergency Medicine; PCP Internal Medicine; Visit Provider Internal Medicine | DX: R94.31 Abnormal electrocardiogram [ECG] [EKG] (principal) | CPT/HCPCS: 93010 ==

== ENCOUNTER 2023-12-27 10:30 | Outpatient (REF) | payer MEDICAID, SELFPAY ==
[2023-12-27 11:19] LABS: Estimated Average Glucose 166 mg/dL; Hemoglobin A1c % 7.4 % (<6.0)
[2023-12-27 12:12] LABS: Anion Gap 14 (12-20); Blood Urea Nitrogen 12 mg/dL (9-16); Calcium 9.4 mg/dL (8.4-10.2); Carbon Dioxide 22 mmol/L (22-29); Chloride 106 mmol/L (96-108); Estimated Glomerular Filt Rate > 60; Glucose Random 155 mg/dL (60-115); Potassium 3.6 mmol/L (3.3-5.1); Sodium 138 mmol/L (135-145)
== END 2023-12-27 10:31 | disposition home or self-care (01) ==
LOC: HO.LAB 10:30
PROVIDERS: PCP Internal Medicine; Visit Provider Internal Medicine
DX: E11.9 Type 2 diabetes mellitus without complications (principal)
CPT/HCPCS: 36415; 80048; 83036

== ENCOUNTER 2024-01-18 13:41 | Outpatient (AMB) | payer MEDICAID, SELFPAY ==
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
== END 2024-01-18 14:52 | disposition home or self-care (01) ==
PROVIDERS: PCP Internal Medicine; Visit Provider Physician Assistant
DX: M50.90 Cervical disc disorder, unspecified, unspecified cervical region (principal)
CPT/HCPCS: 99204

== ENCOUNTER → 2024-01-18 13:41 | Outpatient (BNVA) | payer MEDICAID, SELFPAY | PROVIDERS: PCP Internal Medicine; Visit Provider Physician Assistant | DX: M50.90 Cervical disc disorder, unspecified, unspecified cervical region (principal) | CPT/HCPCS: 99212 ==

== ENCOUNTER 2024-03-12 05:45 | Day surgery (SDC) | payer MEDICAID, SELFPAY ==
[2024-02-27 10:23] VITALS: BP 113/73; PULSE 78; RESP 20; O2SAT 98; BMI 33.9
--- NOTE | 2024-03-11 09:41 | P.CONAN_ITS ---
Documented by User: Lien Horvath NP 03/11/24 09:42 HPI - Anesthesia Eval Consult details Narrative: 38yo M for C4-5,C6-7 Cervical Disc Arthroplasty Significant marijuana use smokes all day long Anesthesia Pre-Procedure Meds Is the patient on any of the following meds?: GLP1/DPP4 and SGLT2 Inhib PMFSH Active Problems Active Problems: All Active Problems Cervical disc disorder (Acute) Past Medical History Medical History Snores Asthma Bipolar disorder Anxiety PTSD (post-traumatic stress disorder) Diabetes Surgical History Surgical History No pertinent past surgical history Social History Social History Housing Other:: scheduled as extended stay post-op Are you a primary animal care taker to a significant other at home: No Do you presently have visiting nurse or other home services: Yes (has outside social insurance specialist) Patient Tobacco Use Status: Former Tobacco user Tobacco use type: Cigarette Years Smoked: 15 Use of substances other than those prescribed or required for medical reasons: Yes Substance Use Type: Marijuana Substance Use Type Other:: smoke all day long-advised to hold 3 days preop Substance Use Frequency: Daily Substance Use Frequency Other:: 1 oz. week/smokes marijuana all day long Have you been hit, kicked, punched, or otherwise hurt by someone within the past year? If so, by whom?: No Are you DNR?: No Advance Directives: No Advance Directives Information Provided: Yes Advance Directives on File: No Recently lost weight without trying: No Eating poorly because of decreased appetite: No Nutrition Risks: No Nutritional Risk Poor oral hygiene: No Meds Allergies Allergy/AdvReac Type Severity Reaction Status Date / Time No Known Allergies Allergy Verified 03/12/24 06:11 [No Known Allergies*] Home Medications ?Medication ?Instructions ?Recorded ?Confirmed ?Last Taken ?Type aripiprazole 10 mg tablet 10 mg PO QAM 02/26/24 02/27/24 03/10/24 21:00 History dulaglutide 0.75 mg/0.5 mL 0.75 mg subcut QWEEK 02/26/24 02/27/24 02/28/24 History subcutaneous pen injector (Trulicity) empagliflozin 10 mg tablet 10 mg PO QAM 02/26/24 02/27/24 02/27/24 History (Jardiance) glipizide 10 mg tablet 10 mg PO QAM 02/26/24 02/27/24 03/03/24 History albuterol sulfate 90 mcg/actuation 2 puff inhalation Q4-6H PRN 02/27/24 02/27/24 Unknown History aerosol inhaler (Ventolin HFA) Shortness Of Breath Or Wheezing metformin 500 mg tablet 500 mg PO QAM 02/27/24 02/27/24 03/03/24 History Exam Height,Weight and Vital Signs: Height 5 ft 5 in Weight 92.533 kg Last Vital Signs Pulse 78 02/27/24 10:23 Resp 20 02/27/24 10:23 BP 113/73 02/27/24 10:23 Pulse Ox 98 02/27/24 10:23 O2 Del Method Room Air 02/27/24 10:23 Pertinent Lab Results Pertinent Lab Results: Laboratory Tests 11/16/23 12/27/23 05:59 10:45 WBC 10.8 Hgb 15.0 Hct 41.8 L Plt Count 336 D Sodium 138 Potassium 3.6 Chloride 106 Carbon Dioxide 22 BUN 12 Creatinine 0.98 Narrative Narrative: EKG 10/2023 Vent. Rate : 076 BPM Atrial Rate : 076 BPM P-R Int : 146 ms QRS Dur : 098 ms QT Int : 374 ms P-R-T Axes : 012 032 005 degrees QTc Int : 420 ms Normal sinus rhythm Normal ECG When compared with ECG of 06-DEC-2021 10:15, No significant change was found Assessment and Plan Assessment Anesthesia Assessment: Chart Reviewed Documented by User: Carlene Nicole MD 03/12/24 10:26 HPI - Anesthesia Eval Anesthesia Pre-Procedure Meds Is the patient on any of the following meds?: GLP1/DPP4 (Stopped >1 week ago) and SGLT2 Inhib (Stopped >1 week ago) If yes to any meds - educate patient: Pt education - increased risk of aspiration and/or euvolemic DKA PMFSH Active Problems Active Problems: All Active Problems Cervical disc disorder (Acute) Snores but never tested for YUNG Increased BMI Significant daily marijuana use Past Medical History Medical History Snores Asthma Bipolar disorder Anxiety PTSD (post-traumatic stress disorder) Diabetes Family History Family history of problems with anesthesia: No Surgical History Surgical History No pertinent past surgical history History of Problems with Anesthesia: No Social History Social History Housing Other:: scheduled as extended stay post-op Are you a primary animal care taker to a significant other at home: No Do you presently have visiting nurse or other home services: Yes (has outside social insurance specialist) Patient Tobacco Use Status: Former Tobacco user Tobacco use type: Cigarette Years Smoked: 15 Use of substances other than those prescribed or required for medical reasons: Yes Substance Use Type: Marijuana Substance Use Type Other:: smoke all day long-advised to hold 3 days preop Substance Use Frequency: Daily Substance Use Frequency Other:: 1 oz. week/smokes marijuana all day long Have you been hit, kicked, punched, or otherwise hurt by someone within the past year? If so, by whom?: No Are you DNR?: No Advance Directives: No Advance Directives Information Provided: Yes Advance Directives on File: No Recently lost weight without trying: No Eating poorly because of decreased appetite: No Nutrition Risks: No Nutritional Risk Poor oral hygiene: No Meds Allergies Allergy/AdvReac Type Severity Reaction Status Date / Time No Known Allergies Allergy Verified 03/12/24 06:11 [No Known Allergies*] Home Medications ?Medication ?Instructions ?Recorded ?Confirmed ?Last Taken ?Type aripiprazole 10 mg tablet 10 mg PO QAM 02/26/24 02/27/24 03/10/24 21:00 History dulaglutide 0.75 mg/0.5 mL 0.75 mg subcut QWEEK 02/26/24 02/27/24 02/28/24 History subcutaneous pen injector (Trulicity) empagliflozin 10 mg tablet 10 mg PO QAM 02/26/24 02/27/24 02/27/24 History (Jardiance) glipizide 10 mg tablet 10 mg PO QAM 02/26/24 02/27/24 03/03/24 History albuterol sulfate 90 mcg/actuation 2 puff inhalation Q4-6H PRN 02/27/24 02/27/24 Unknown History aerosol inhaler (Ventolin HFA) Shortness Of Breath Or Wheezing metformin 500 mg tablet 500 mg PO QAM 02/27/24 02/27/24 03/03/24 History Exam Height,Weight and Vital Signs: Height 5 ft 5 in Weight 92.533 kg Last Vital Signs Pulse 78 02/27/24 10:23 Resp 20 02/27/24 10:23 BP 113/73 02/27/24 10:23 Pulse Ox 98 02/27/24 10:23 O2 Del Method Room Air 02/27/24 10:23 Height 5 ft 5 in Weight 97.069 kg Vital Signs Temp Pulse Resp BP Pulse Ox O2 Del Method 03/12/24 06:42 98.2 F 83 16 127/76 95 Room Air Pertinent Lab Results Pertinent Lab Results: Laboratory Tests 11/16/23 12/27/23 05:59 10:45 WBC 10.8 Hgb 15.0 Hct 41.8 L Plt Count 336 D Sodium 138 Potassium 3.6 Chloride 106 Carbon Dioxide 22 BUN 12 Creatinine 0.98 Lab Results 03/12/24 Range/Units 06:14 POC Glucose 177 H (60-115) mg/dL Airway Mallampati Class: III (Bearded) TM Dist: >3cm Neck ROM: Limited Loose/Missing/Broken Teeth: No (Denies broken, loose, missing teeth) Heart: RRR Lungs: CTAB Assessment and Plan Assessment Anesthesia Assessment: Anesthesia Plan Discussed and Chart Reviewed Final Anesthetic Review Family History of Problems with Anesthesia: No History of Problems with Anesthesia: No NPO: Yes ASA Class: III Final Preanesthetic Review: No Changes in Pt Med Stat, Meds/Allgs Chart Reviewed, Consent Obtained/Reviewed and Anes Risks/Benef Reviewed Patient Risk: High Procedure Risk: Intermediate Assessment/Block/Sedation in SS: Assess/Block/Sedation-SS Anesthetic Plan Anesthetic Plan: GA Disposition: Standard PACU
[2024-03-12] VITALS (9 sets, daily range): BP systolic 97–127; BP diastolic 53–76; PULSE 75–97; RESP 16–22; TEMP 36.2–36.8; O2SAT 93–98; BMI 35.6
--- NOTE | ~2024-03-12 | FL_ITS ---
EXAMINATION: XR FLUOROSCOPY WITH IMAGES CLINICAL INFORMATION: Fluoroscopy guidance. COMPARISON: None available. TECHNIQUE: Fluoroscopy Supervised By: Dr. Hills, Dr. Hernandez. Fluoroscopy Time: 33.4 seconds. Cumulative Dose: 15.509 mGy. DAP: 1.8422 Gycm2. Images: 2. FINDINGS: Fluoroscopic guidance provided for procedure. Images demonstrate surgical hardware overlying the cervical spine. Please refer to procedure report for more detailed evaluation. FL/FL guidance in OR IMPRESSION: Fluoroscopic guidance provided for procedure.
[2024-03-12] MEDS: methocarbamoL 750 MG TABLET PO (06:43)
[2024-03-12] MEDS: Gabapentin 300 MG CAPSULE PO (06:43)
[2024-03-12 06:47] LABS: Glucose, Whole Blood 177 mg/dL (60-115)
--- NOTE | 2024-03-12 07:15 | P.HPSUR_ITS ---
Pre-Procedural Eval Section A - 24 Hr Update-Section A only Date of Service: 03/12/24 The patient is an INPATIENT: No Section B - Complete if H&P > 30 days Chief Complaint: Cervical disc disorder, unspecified, Relevant Family History (Specify if Yes): No Relevant Social History: None Present Medications: see Short Stay Collaborative assessment Allergies: Allergies Allergy/AdvReac Type Severity Reaction Status Date / Time No Known Allergies Allergy Verified 03/12/24 06:11 [No Known Allergies*] Review of Systems Sugical H&P ROS: Negative: Constitution, Cardiovascular, Respiratory, Neurological, Psychiatric, Hem-Onc, Allergic/Immunologic, Gastrointestinal, Genitourinary, Musculoskeletal, Integumentary, Endocrine and Eyes/Ears/Nose/Throat Exam Surgical H&P Exam: Normal: HEENT, Normal: Heart, Normal: Lungs, Normal: Extrem ities, Normal: Abdomen, Normal: Skin and Normal: Neurological (Awake, alert) Plan Diagnosis/Plan: Unchanged Disc arthroplasty C4-5, C6-7 Time Spent With Patient Time: Total time managing care of this patient today _5___ minutes.
[2024-03-12] MEDS: Lactated Ringers 1,000 ML 100 ML IVCONT (07:16)
--- NOTE | 2024-03-12 10:12 | PM.DS ---
DS: Providers Provider Date of Service: 03/12/24 Date of admission: 03/12/24 06:07 Primary care physician: Abdiel Atkinson MD DS: Summary Time Attestation Discharge Coordination Time (in mins): 15 Quality: Safe Use of Opioids Does Pt have an Active Cancer Diagnosis on the Problem List?: No Quality: Stroke Does the patient have a stroke diagnosis?: No Physical Exam Vital Signs: Vital Signs: Last Vital Signs Temp 98.2 F 03/12/24 06:42 Pulse 83 03/12/24 06:42 Resp 16 03/12/24 06:42 BP 127/76 03/12/24 06:42 Pulse Ox 95 03/12/24 06:42 O2 Del Method Room Air 03/12/24 06:42 BMI result Body Mass Index 35.6 DS: Data Data Completed and Pending Labs on day of discharge: Laboratory Results - last 24 hr 03/12/24 06:14 POC Glucose 177 H Discharge Plan Discharge Anticipated Discharge Date/Time: 03/12/24 10:12 Patient Disposition: Home, Self-Care Discharge Diagnosis: s/p C4-5, C6-7 cervical disc arthroplasty Referrals: Abdiel Atkinson MD [Primary Care Provider] - 1 Week Discharge Medications: New oxycodone 5 mg tablet 5 mg PO Q6H PRN (Reason: severe pain (scale score 7-10)) Qty: 30 0RF Rx Instructions: Partial Fill upon patient request. Continued glipizide 10 mg tablet 10 mg PO QAM aripiprazole 10 mg tablet 10 mg PO QAM Jardiance 10 mg tablet 10 mg PO QAM Trulicity 0.75 mg/0.5 mL pen injector 0.75 mg subcut QWEEK Rx Instructions: takes on Saturdays metformin 500 mg Tablet 500 mg PO QAM albuterol sulfate [Ventolin HFA] 90 mcg/actuation Hfa Aerosol Inhaler 2 puff INHALATION Q4-6H PRN (Reason: Shortness Of Breath Or Wheezing) Discharge Orders: Discharge Order (Routine); Ordered 03/12/24 Ordered By: Hieu Ye Diet: Advance to usual diet Activity on Discharge: As tolerated Stand Alone Forms: Patient Portal Discharge page Print Language: Macanese Activity Restrictions/Additional Instructions: After your spinal surgery we ask you to observe the following restrictions/guidelines: Activity: It is normal to feel some discomfort as you increase your activity, but that will improve with time. We ask you avoid heavy lifting or acitivities that cause pain. As a general rule, 8lbs is a safe limit for lifting right after surgery. Walk as much as you feel comfortable but not to exhaustion. You will feel extra tired the first few days after surgery. Stay well hydrated. It is OK to walk up and down stairs You may return to driving when you are off narcotics (such as vicodin, oxycodone, dilaudid, etc), and you are back to normal functional capacity. If you have any concerns please check with office before driving. Return to work is specific to each patient and each surgery, so please speak with your doctor/PA at first follow up. Please bring paperwork such as FMLA at that time if you need it filled out. Medications: We will give you a short supply of narcotics after surgery (usually one weeks worth). If you need more please call the office but do not use more than prescribed. You will need to give our office 48 hours notice if you need narcotics refilled and we do not fill narcotics on weekends or evenings. If you are on a narcotic, it is a good idea to take a stool softener such as colace or senna to avoid constipation If you take blood thinner such as aspirin, Plavix, Coumadin, Effient, Eliquis etc for conditions such as Afib, DVT, Pulmonary embolus, coronary disease, stents etc please speak with your surgeon about specific details as to when you can resume these medications. You can resume NSAIDs on post op day 1 (eg: Motrin, Naproxen, etc). Follow up: Please call the office, , after surgery to arrange a 3 week follow up for wound check. Wound Care: You may remove your dressing on the first day after surgery. ?You may ?leave open to air. Please do not remove the steri strips underneath. they will fall off on their own in one week. IT IS NORMAL FOR THE WOUND TO OOZE OR BE BLOODY FOR A FEW DAYS AFTER SURGERY. ?IF THIS HAPPENS JUST PLACE NEW DRESSING OVER IT TO AVOID STAINING CLOTHES. You may shower on post op day # 1 We ask that you do not let the water soak the wound. If it does get wet, just towel dry lightly. Please do not scrub your incision or place any type of chemical/ointment on the wound. No tub baths, pools or jacuzzis for one month. If you have any leaking or redness from your wound, or fevers, please call the office. Care Plan Goals: Returned to normal activity as tolerated Health Concerns: None Plan of Treatment: Follow-up in clinic in 2-3 weeks Assessment: Patient is stable status post C4-5, C6-7 total disc arthroplasty.
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
[2024-03-12] MEDS: oxyCODONE HCl Immed Release 5 MG TABLET PO (11:05)
== END 2024-03-12 13:35 | disposition home or self-care (01) ==
LOC: HO.SSS 05:45 → HO.SSSA 10:12
PROVIDERS: Physician Assistant; PCP Internal Medicine; Visit Provider Neurological Surgery
PROC: (CPT 22856; principal; 2024-03-12 07:30)
DX: M50.021 Cervical disc disorder at C4-C5 level with myelopathy (principal); M50.022 Cervical disc disorder at C5-C6 level with myelopathy; M25.511 Pain in right shoulder; Z87.828 Personal history of other (healed) physical injury and trauma; E11.9 Type 2 diabetes mellitus without complications; F43.10 Post-traumatic stress disorder, unspecified; F41.9 Anxiety disorder, unspecified; Z79.84 Long term (current) use of oral hypoglycemic drugs; Z79.899 Other long term (current) drug therapy
CPT/HCPCS: 22856; 22858; 82947; C1776; J0131; J0690; J1100; J1170; J2250; J2371; J2405; J2598; J2704; J3010

== ENCOUNTER → 2024-03-12 06:07 | Outpatient (BNV) | payer MEDICAID, SELFPAY | PROVIDERS: Admitting Provider Physician Assistant; PCP Internal Medicine; Visit Provider Physician Assistant | DX: M50.03 Cervical disc disorder with myelopathy, cervicothoracic region (principal) | CPT/HCPCS: 22856; 22858; 99499 ==

== ENCOUNTER 2024-04-02 14:06 | Outpatient (AMB) | payer MEDICAID, SELFPAY ==
--- NOTE | 2024-04-02 14:10 | HO.SPINEOV ---
Intake Visit Reasons: 1st post op Intake Note: Mr. Vargas is here today for his 1st post-op visit. 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 He reports his neck pain has largely resolved but he still has quite a bit of pain between his shoulders. The patient reports he is up walking around and completing the majority of his ADLs. He is no longer taking any pain medication. We discussed the possibility of initiating some bbbu-uya-upxqwmn medications such as Tylenol/ibuprofen, pain creams, patches, and ice. He was amenable to these suggestions. No new neurological deficits. Patient is able to ambulate well, rises from a seated position without difficulty. Incision site is closed, well healing, with no signs of drainage. We will follow-up with the patient in 6 weeks for their 2nd postoperative visit. At that time we will get x-rays to review with the patient. Hieu Hills MD,PhD [facility] Coding Level of Care Code Global (48845) Diagnoses Cervical disc disorder M50.90
== END 2024-04-02 14:38 | disposition home or self-care (01) ==
PROVIDERS: PCP Internal Medicine; Visit Provider Physician Assistant
DX: M50.90 Cervical disc disorder, unspecified, unspecified cervical region (principal)
CPT/HCPCS: 99024

== ENCOUNTER → 2024-04-02 14:06 | Outpatient (BNVA) | payer MEDICAID, SELFPAY | PROVIDERS: PCP Internal Medicine; Visit Provider Physician Assistant | DX: M50.90 Cervical disc disorder, unspecified, unspecified cervical region (principal) | CPT/HCPCS: 99212 ==

== ENCOUNTER 2024-05-13 10:22 | Outpatient (REF) | payer MEDICAID, SELFPAY ==
[2024-05-13 11:01] LABS: MANUAL DIFF FLAG NO
[2024-05-13 11:02] LABS: Basophils Absolute Auto 0.1 X10*3/uL (0.0-0.2); Basophils Percent Auto 0.5 % (0-2); Eosinophils Absolute Auto 0.1 X10*3/uL (0.0-0.4); Eosinophils Percent Auto 1.2 % (0-4); Hematocrit 42.1 % (42.0-52.0); Hemoglobin 15.1 g/dl (14.0-18.0); Imm Gran Abs Auto 0.02 X10*3/uL (0.00-0.03); Imm Gran Pct Auto 0.2 % (0.0-0.4); Lymphocytes Absolute Auto 3.4 X10*3/uL (1.2-4.9); Lymphocytes Percent Auto 34.7 % (20-40); Mean Corpuscular HGB Conc 35.9 g/dl (31.0-36.0); Mean Corpuscular Hemoglobin 30.6 pg (27.0-33.0); Mean Corpuscular Volume 85.2 fL (80.0-98.0); Mean Platelet Volume 10.5 fL (9.4-12.4); Monocytes Absolute Auto 0.9 X10*3/uL (0.1-1.2); Monocytes Percent Auto 8.9 % (2-11); Neutrophils Absolute Auto 5.3 x10*3/uL (2.0-8.3); Neutrophils Percent Auto 54.5 % (45-73); Platelet Count 335 X10*3/uL (160-400); Red Blood Count 4.94 X10*6/uL (4.60-5.80); Red Cell Distribution Width 11.9 % (11.0-16.0); White Blood Count 9.7 X10*3/uL (4.8-10.8)
[2024-05-13 11:23] LABS: Anion Gap 11 (12-20); Blood Urea Nitrogen 20 mg/dL (9-16); Calcium 9.4 mg/dL (8.4-10.2); Carbon Dioxide 25 mmol/L (22-29); Chloride 103 mmol/L (96-108); Estimated Glomerular Filt Rate > 60; Glucose Random 313 mg/dL (60-115); Potassium 4.1 mmol/L (3.3-5.1); Sodium 135 mmol/L (135-145)
[2024-05-13 11:37] LABS: Estimated Average Glucose 237 mg/dL; Hemoglobin A1c % 9.9 % (<6.0)
== END 2024-05-13 10:23 | disposition home or self-care (01) ==
LOC: HO.10HDL 10:22
PROVIDERS: Visit Provider Internal Medicine
DX: E11.9 Type 2 diabetes mellitus without complications (principal)
CPT/HCPCS: 36415; 80048; 83036; 85025

== ENCOUNTER 2024-05-15 09:13 | Outpatient (REF) | payer MEDICAID, SELFPAY ==
--- NOTE | ~2024-05-15 | XR_ITS ---
EXAMINATION: XR CERVICAL SPINE CLINICAL INFORMATION: M50.90 - Cervical disc disorder, unspecified, unspecified cervical region COMPARISON: None available. TECHNIQUE: 5 views of the cervical spine, inclusive of flexion and extension views, were obtained. FINDINGS: Normal bony mineralization. No fractures, or suspicious bony lesions. No evidence of traumatic subluxation. There has been discectomy with disc replacement present C4-5, and C6-7. Hardware appears intact and well seated without complication. Mild uncinate hypertrophy is present predominantly on the right at C3-4, and bilaterally at C4-5 and C5-6. Nonoperative disc levels are normal aside from C5-6 which demonstrates moderate narrowing and spurring. There is normal alignment in the neutral view without subluxation. Flexion and extension views demonstrate no developing subluxations. No evidence of instability. Paravertebral and prevertebral soft tissues are normal. Lung apices clear. XR/XR cervical spine 4V IMPRESSION: 1. Post discectomy with disc prosthesis C4-5, and C6-7. No complication evident. 2. No subluxations or evidence of instability on flexion and extension views. 3. No acute findings of the cervical spine. 4. Mild spondylosis as detailed above. Electronically signed by: Ryley Curiel MD 07/26/2024 07:31 PM [facility]
== END 2024-05-15 09:14 | disposition home or self-care (01) ==
LOC: HO.HOSX 09:13
PROVIDERS: PCP Internal Medicine; Visit Provider Physician Assistant
DX: M50.90 Cervical disc disorder, unspecified, unspecified cervical region (principal)
CPT/HCPCS: 72050

== ENCOUNTER → 2024-05-15 10:47 | Outpatient (BNV) | payer MEDICAID, SELFPAY | PROVIDERS: PCP Internal Medicine; Visit Provider Radiology Diagnostic Radiology | DX: M50.921 Unspecified cervical disc disorder at C4-C5 level (principal); M50.923 Unspecified cervical disc disorder at C6-C7 level | CPT/HCPCS: 72050 ==

== ENCOUNTER 2024-05-16 14:43 | Outpatient (AMB) | payer MEDICAID, SELFPAY ==
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
== END 2024-05-16 15:38 | disposition home or self-care (01) ==
PROVIDERS: PCP Internal Medicine; Visit Provider Physician Assistant
DX: M54.6 Pain in thoracic spine (principal); M50.90 Cervical disc disorder, unspecified, unspecified cervical region
CPT/HCPCS: 99024

== ENCOUNTER → 2024-05-16 14:43 | Outpatient (BNVA) | payer MEDICAID, SELFPAY | PROVIDERS: PCP Internal Medicine; Visit Provider Physician Assistant | DX: M54.6 Pain in thoracic spine (principal); M50.90 Cervical disc disorder, unspecified, unspecified cervical region | CPT/HCPCS: 99212 ==

== ENCOUNTER 2024-06-11 10:05 | Outpatient (AMB) | payer MEDICAID, SELFPAY ==
--- NOTE | 2024-06-11 10:10 | MHC.OFFVIS ---
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 Pt noticed this in February. Pt states he has pain where the lump is especially when he is gripping or using the palm of his hand.Pt states it has increased in size since February. Pt denies any locking of his fingers. Pt denies any previous surgeries or injections to his right hand. 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 The patient reports that this does cause him some significant discomfort whenever something hits the nodule or he is grasping something in his hand that rests on the nodule, but reports no pain at baseline. Patient reports that it does get larger and smaller, and it is fairly large at this point. The patient denies any locking or catching of the right middle finger. Patient denies any numbness or tingling of the right hand. No other acute complaints or concerns at this time. [facility] Medical History Snores Asthma Bipolar disorder Anxiety PTSD (post-traumatic stress disorder) Diabetes Surgical History No pertinent past surgical history Social History Housing Other:: scheduled as extended stay post-op Are you a primary home health caregiver to a significant other at home: No Do you presently have visiting nurse or other home services: Yes (has outside social media senior associate) Patient Tobacco Use Status: Former Tobacco user Tobacco use type: Cigarette Years Smoked: 15 Substance Use Type: Marijuana Review of Systems Const All systems reviewed & are unremarkable except as noted in HPI and below Physical Exam Extrem Other: Patient is alert, oriented, and in no acute distress. Neuro: Normal sensation of the tips of all digits of the right hand at this time Vascular: Cap refill brisk Pain: Patient reports very mild tenderness to palpation about the level of the nodule Range of motion of the right hand is painless ROM: No visible or palpable locking and catching of any of the digits of the right hand Patient is able to make a closed fist and extend all digits of the right hand fully and without difficulty Skin: No lacerations or abrasions. General: No ecchymosis, erythema, or evidence of infection. There is noted to be a small, approximately 0.5 cm in diameter nodule that is firm and round over the flexor tendon of the right middle finger Psych: Appears grossly normal Affect normal Attitude cooperative Office Procedures Joint Injection/Aspiration Joint Injection/Aspiration Details: Aspiration of volar retinacular cyst of the flexor tendon of the right middle finger Primary Site: other Prep: site was prepped using aseptic technique, ethochloride spray was applied and injection warnings given Injected: with 1 mL of and 1% plain lidocaine Procedure: The patient tolerated the procedure well Coding Procedure code (CPT) selection complete Assessment & Plan Assessment & Plan (1) Ganglion cyst of tendon sheath of right hand: Code(s): M67.441 - Ganglion, right hand Category: Medical Plan 1. 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 Once consent was obtained, I sterilely prepped the area over the level of the nodule on the right middle finger flexor tendon. I then injected 1% plain lidocaine just below the level of the skin as well as into the retinacular cyst, and expressed all fluid out of the cyst without difficulty until there was no further palpable nodule in the right palm. The patient tolerated the procedure well with no complications. Patient is educated that he should present to our office if he experiences recurrence to discuss further aspiration or potential surgical intervention if his hemoglobin A1c has improved Follow-up prn Medications: Discontinued oxycodone Partial Fill upon patient request. Discontinued Reason: Patient no longer taking 5 mg PO Q6H PRN 30 tabs 0RF severe pain (scale score 7-10) Coding Level of Care Code New Pt Level 3 (98454) Diagnoses Ganglion cyst of tendon sheath of right hand M67.441
== END 2024-06-11 10:56 | disposition home or self-care (01) ==
PROVIDERS: PCP Internal Medicine
DX: M67.441 Ganglion, right hand (principal)
CPT/HCPCS: 20612; 99203

== ENCOUNTER → 2024-06-11 10:05 | Outpatient (BNVA) | payer MEDICAID, SELFPAY | PROVIDERS: PCP Internal Medicine | DX: M67.441 Ganglion, right hand (principal) | CPT/HCPCS: 20612; 99212; J2003 ==

== ENCOUNTER → 2024-06-14 11:33 | Outpatient (BNV) | payer MEDICAID, SELFPAY | PROVIDERS: PCP Internal Medicine; Visit Provider Radiology Diagnostic Radiology | DX: M54.6 Pain in thoracic spine (principal) | CPT/HCPCS: 72146 ==

== ENCOUNTER 2024-06-14 11:34 | Outpatient (REF) | payer MEDICAID, SELFPAY ==
--- NOTE | ~2024-06-14 | MR_ITS ---
FINDINGS: MR THORACIC SPINE WITHOUT CONTRAST CLINICAL INFORMATION: [facility] 08/2019 . Spine pain, constant muscle spasms, slight loss of feeling in right hand. History of C-spine discectomy and fusion. COMPARISON: MRI thoracic 05/05/2021. TECHNIQUE: Multiplanar multisequence MR imaging of the thoracic spine was performed without IV contrast. Examination performed on a 1.5 Sally high-field magnet. FINDINGS: ALIGNMENT: -Mild straightening of the normal lordosis. No significant scoliosis. VERTEBRAL BODIES AND BONE MARROW: -There is a mild butterfly vertebral body at T5. -There is a hemangioma in T8 oriented to the left. -There is no gross bone marrow edema, compression deformity, fracture, or abnormal infiltrating bone marrow signal. -Partially imaged C6-C7 fusion hardware with susceptibility artifact. DISC SPACES AND ENDPLATES: -Mild diffuse loss of disc height and signal most significant at T4-5, T6-7 and T7-8. PARASPINAL SOFT TISSUES: -Normal. Aorta is normal in caliber. No pleural effusions. SPINAL CORD: -Normal in caliber and signal throughout. There are no regions of cord thinning, expansion, or impingement. -The conus terminates at the mid L1 level and is normal in signal and morphology. AXIAL SPINAL LEVELS: C7-T1: No significant disc bulge. No central canal or neural foraminal narrowing. T1-T2: No significant disc bulge. No central canal or neural foraminal narrowing. T2-T3: No significant disc bulge. No central canal or neural foraminal narrowing. T3-T4: No significant disc bulge. No central canal or neural foraminal narrowing. T4-T5: No significant disc bulge. No central canal or neural foraminal narrowing. T5-T6: No significant disc bulge. No central canal or neural foraminal narrowing. T6-T7: No significant disc bulge. No central canal or neural foraminal narrowing. T7-T8: Shallow broad-based disc bulge which partially indents upon the ventral thecal sac but does not contact the cord. No significant central canal or neural foraminal narrowing. No change. T8-T9: No significant disc bulge. No central canal or neural foraminal narrowing. T9-T10: No significant disc bulge. No central canal or neural foraminal narrowing. T10-T11: No significant disc bulge. No central canal or neural foraminal narrowing. T11-T12: No significant disc bulge. No central canal or neural foraminal narrowing. T12-L1: No significant disc bulge. Mild facet hypertrophy and degeneration. No central canal or neural foraminal narrowing. MR/MR thoracic spine wo con IMPRESSION: 1. No acute findings in the thoracic spine. Examination is stable when compared with 04/27/2021. 2. Aside from a subtle disc bulge at T7-T8, no significant disc herniation present. No central canal, or neural foraminal narrowing at any level 3. The thoracic cord is normal in caliber and signal throughout. 4. Partially imaged cervical fusion hardware with susceptibility at C6-7. Electronically signed by: Ryley Curiel MD 08/11/2024 09:50 AM [facility]
== END 2024-06-14 11:35 | disposition home or self-care (01) ==
LOC: HO.MRI 11:34
PROVIDERS: PCP Internal Medicine; Visit Provider Physician Assistant
DX: M54.6 Pain in thoracic spine (principal)
CPT/HCPCS: 72146

== ENCOUNTER 2024-07-07 11:06 | Outpatient (REF) | payer MEDICAID, SELFPAY ==
[2024-07-07 11:43] LABS: Estimated Average Glucose 252 mg/dL; Hemoglobin A1C 368.7776 umol/L; Hemoglobin A1c % 10.4 % (<6.0); Total Hemoglobin (HGBA1C) 4110.8804 umol/L
[2024-07-07 11:47] LABS: Anion Gap 14 (12-20); Blood Urea Nitrogen 12 mg/dL (9-16); Calcium 9.4 mg/dL (8.4-10.2); Carbon Dioxide 22 mmol/L (22-29); Chloride 105 mmol/L (96-108); Estimated Glomerular Filt Rate > 60; Glucose Random 178 mg/dL (60-115); Potassium 4.1 mmol/L (3.3-5.1); Sodium 137 mmol/L (135-145)
== END 2024-07-07 11:07 | disposition home or self-care (01) ==
LOC: HO.LAB 11:06
PROVIDERS: PCP Internal Medicine; Visit Provider Internal Medicine
DX: E11.9 Type 2 diabetes mellitus without complications (principal)
CPT/HCPCS: 36415; 80048; 83036

== ENCOUNTER 2024-09-30 08:39 | Emergency (ER) | payer MEDICAID, SELFPAY ==
--- NOTE | ~2024-09-30 | XR_ITS ---
EXAMINATION: XR PELVIS CLINICAL INFORMATION: injury COMPARISON: None available. TECHNIQUE: AP view of the pelvis. FINDINGS: No fracture. Hip joint spaces are maintained. Alignment is anatomic. The sacrum appears intact. There are arthritic changes in the SI joints right greater than left. Probable bone island in the intertrochanteric right hip region. No abnormal soft tissue calcifications. XR/XR pelvis 1-2V IMPRESSION: No acute bony abnormalities. Electronically signed by: Ryley Curiel MD 09/30/2024 09:59 AM [facility]
--- NOTE | ~2024-09-30 | CT_ITS ---
EXAMINATION: CT CERVICAL SPINE WITHOUT IV CONTRAST HISTORY: fall head strike neck pain. TECHNIQUE: Helical CT of the cervical spine was performed per standard departmental protocol. Coronal and sagittal reformatted images were also evaluated. One or more of the following techniques was used for dose reduction: Automated exposure control, adjustment of the mA and/or kV according to patient size, use of iterative reconstruction technique. DLP: 511.0 mGy-cm COMPARISON: Comparison is made with the prior examination dated 09/11/2022. FINDINGS: CERVICAL SPINE: In the interval since the prior study, metallic disc prostheses have been placed at C4-5 and C6-7. There is a moderate amount of metallic streak artifact at these levels. The vertebral bodies maintain normal height and alignment without evidence of fracture or subluxation. There is mild degenerative disc disease at the C5-6 level, with disc space narrowing and osteophyte formation. Evaluation for disc pathology is limited by lack of intrathecal contrast material and streak artifact. BRAIN: The visualized portion of the brain is unremarkable. SINUSES: The visualized paranasal sinuses, mastoid air cells and middle ear cavities are unremarkable. LUNG APICES: The visualized lung apices are clear. SOFT TISSUES: The visualized paraspinal soft tissues are unremarkable. CT/CT cervical spine wo IV con IMPRESSION: No evidence of fracture or malalignment of the cervical spine. Electronically signed by: Jonny Amato MD 09/30/2024 12:06 PM [facility]
--- NOTE | ~2024-09-30 | XR_ITS ---
EXAMINATION: XR SHOULDER, LEFT CLINICAL INFORMATION: injury COMPARISON: None available. TECHNIQUE: Three views of the left shoulder. FINDINGS: The bones and soft tissues are normal. No fracture. Glenohumeral and acromioclavicular alignment is anatomic with normal joint space. No abnormal soft tissue calcifications. Incidental note made of cervical fusion C4-5, and C6-7. XR/XR shoulder LT min 2V IMPRESSION: Normal left shoulder. Electronically signed by: Ryley Curiel MD 09/30/2024 10:01 AM [facility]
--- NOTE | ~2024-09-30 | CT_ITS ---
EXAMINATION: CT HEAD WITHOUT IV CONTRAST HISTORY: fall head strike. TECHNIQUE: Unenhanced helical CT of the head was performed per standard departmental protocol. Coronal and sagittal reformats of the head were also evaluated. One or more of the following techniques was used for dose reduction: Automated exposure control, adjustment of the mA and/or kV according to patient size, use of iterative reconstruction technique. DLP: 829.8 mGy-cm COMPARISON: There are no prior studies for comparison. FINDINGS: BRAIN: The brain parenchyma is unremarkable. There is normal albrecht/white differentiation. The ventricular system is normal in size and configuration. There is no mass effect or midline shift. No intra- or extra-axial fluid collections are identified. SINUSES: The visualized paranasal sinuses are clear. The mastoid air cells and middle ear cavities are well pneumatized. ORBITS: The visualized orbits are unremarkable. BONES/SOFT TISSUES: The extracranial soft tissues are unremarkable. The calvarium is intact. No suspicious lytic or sclerotic lesions. CT/CT head/brain wo IV con IMPRESSION: Unremarkable unenhanced head CT. Electronically signed by: Jonny Amato MD 09/30/2024 12:01 PM [facility]
[2024-09-30 08:57] VITALS: BP 121/83; PULSE 100; RESP 16; TEMP 36.9; O2SAT 97; BMI 34.9
--- NOTE | 2024-09-30 12:38 | ED_ITS ---
HPI - Fall General Chief Complaint: Fall Stated Complaint: Fall yesterday - head/neck pain Time Seen by Provider: 09/30/24 12:34 Source: patient Mode of arrival: ambulatory Limitations: no limitations History of Present Illness ED Provider: VÍCTOR HERRERA Narrative: 38 yo male with PMH of DM not on thinners who slipped on ice yesterday hitting back of head, L hip and L shoulder, unclear LOC but since then no confusion or vomiting. He was outside and it was witnessed. He came today c/o head pain, L shoulder and hip pain - he walked into triage. MD complaint: fall Onset (ago): day(s) (1) Fall from: standing Fall witnessed: yes, by bystander Place fall occurred: street Loss of consciousness: unsure Prolonged down time: no Symptoms prior to fall: none Context: tripped/slipped Location of injury: head and pelvis Location of injury - extremities: left: shoulder Severity: moderate Quality: dull Associated symptoms (after fall): headache Related Data Home Medications ?Medication ?Instructions ?Recorded ?Confirmed aripiprazole 10 mg tablet 10 mg PO QAM 02/26/24 02/27/24 dulaglutide 0.75 mg/0.5 mL 0.75 mg subcut SA 02/26/24 03/12/24 subcutaneous pen injector (Trulicity) empagliflozin 10 mg tablet 10 mg PO QAM 02/26/24 02/27/24 (Jardiance) glipizide 10 mg tablet 10 mg PO QAM 02/26/24 02/27/24 albuterol sulfate 90 mcg/actuation 2 puff inhalation Q4-6H PRN 02/27/24 02/27/24 aerosol inhaler (Ventolin HFA) Shortness Of Breath Or Wheezing metformin 500 mg tablet 500 mg PO QAM 02/27/24 02/27/24 Previous Rx's ?Medication ?Instructions ?Recorded cyclobenzaprine 10 mg tablet 10 mg PO TID PRN muscle spasm #20 09/30/24 tabs ondansetron 4 mg disintegrating 4 mg PO Q8H PRN nausea and 09/30/24 tablet vomiting #20 tabs Allergies Allergy/AdvReac Type Severity Reaction Status Date / Time No Known Allergies Allergy Verified 09/30/24 09:03 [No Known Allergies*] Review of Systems Review of Systems: Constitutional : No Fever, No Chills, No Fatigue ENT/Mouth : No sore throat, No Rhinorrhea Eyes: No Eye Pain, No Swelling, No Redness Cardiovascular : No Chest Pain, No SOB, No Dyspnea on Exertion Respiratory : No Cough, No Sputum Gastrointestinal : No Nausea, No Vomiting, No Diarrhea, No abdominal Pain Genitourinary : No Dysuria, No Urinary Frequency, No Hematuria, Musculoskeletal : pos joint pain, No Myalgias, No Joint Swelling Skin : No Skin Lesions, No rash Neuro : No Weakness, No Numbness, No Dizziness, positive Headache Psych : No Anxiety/Panic, No Depression Heme/Lymph: No Bruising, No Bleeding,No Lymphadenopathy Endocrine : No Polyuria, No Polydipsia All other systems reviewed and are negative [facility] Past Medical History Attestation statement: The following information was validated with the patient. Source: old records reviewed Medical History Snores Asthma Bipolar disorder Anxiety PTSD (post-traumatic stress disorder) Diabetes Surgical History No pertinent past surgical history Social History Social History Housing Other:: scheduled as extended stay post-op Are you a primary youth care specialist to a significant other at home: No Do you presently have visiting nurse or other home services: Yes (has outside social work administrator) Patient Tobacco Use Status: Former Tobacco user Tobacco use type: Cigarette Years Smoked: 15 Substance Use Type: Marijuana Advance Directives: No Advance Directives Information Provided: Yes Physical Exam Vital Signs: Vital Signs: Last Vital Signs Temp 98.5 F 09/30/24 08:57 Pulse 100 09/30/24 08:57 Resp 16 09/30/24 08:57 BP 121/83 09/30/24 08:57 Pulse Ox 97 09/30/24 08:57 O2 Del Method Room Air 09/30/24 08:57 BMI result Body Mass Index 34.9 Appearance: Alert. Oriented X3. No acute distress. Eyes: Pupils equal, round and reactive to light. ENT: Pharynx normal. Neck: Normal inspection. Neck supple. CVS: Normal heart rate and rhythm. Pulses normal. Respiratory: No respiratory distress. Breath sounds normal. Abdomen: Soft and nontender. Skin: Skin warm and dry. Normal skin color. Normal skin turgor. Extremities: No lower extremity edema. No calf ttp Neuro: Oriented X 3. No motor deficit. No sensory deficit. CN2-12 intact Medical Decision Making Medical Decision Making MDM Narrative: 38 yo male with PMH of DM not on thinners here s/p mechanical fall yesterday he is GCS 15 and walking without issue at this time will obtain xrays of L shoulder/hip and given headstrike with headache and possible LOC I have ordered CT head/cspine. Suspect strain and possible concussion Differential Diagnosis Differential Diagnoses: The differential diagnosis associated with the presentation includes strain, sprain, head injury Admission/Observation Consideration of admission/observation: Escalation of care including admission/observation considered GCS 15 stable for DC with precautions Independent Interpretation I performed an independent interpretation of an: Plain X-Ray (no trauma) and CT Scan (no trauma) Radiology Impression Discussion of test interpretation with radiology: I have reviewed the radiologist's reading. External Record Review External record reviewed: Outpatient record Prescription Management I considered prescription management with: Pain Medication and Other Discharge Plan Discharge Clinical Impression: Left shoulder strain, Head injury Patient Disposition: Home, Self-Care Instructions: Head Injury (ED), Shoulder Sprain (ED) Additional Instructions: return for any worsening symptoms or concerns xrays negative for fracture no signs of injury on head or neck CT scans rest and stay hydrated brain rest as discussed for one week Prescriptions: New cyclobenzaprine 10 mg tablet 10 mg PO TID PRN (Reason: muscle spasm) Qty: 20 0RF ondansetron 4 mg tablet,disintegrating 4 mg PO Q8H PRN (Reason: nausea and vomiting) Qty: 20 0RF No Action glipizide 10 mg tablet 10 mg PO QAM aripiprazole 10 mg tablet 10 mg PO QAM Jardiance 10 mg tablet 10 mg PO QAM Trulicity 0.75 mg/0.5 mL pen injector 0.75 mg subcut SA Rx Instructions: takes on Saturdays metformin 500 mg Tablet 500 mg PO QAM albuterol sulfate [Ventolin HFA] 90 mcg/actuation Hfa Aerosol Inhaler 2 puff INHALATION Q4-6H PRN (Reason: Shortness Of Breath Or Wheezing) Stand Alone Forms: Work/School Release Print Language: Macedonian
[2024-09-30 13:10] VITALS: BP 121/83; PULSE 100; RESP 16; TEMP 36.9; O2SAT 97
== END 2024-09-30 13:10 | disposition home or self-care (01) ==
PROVIDERS: Emergency Provider Emergency Medicine; PCP Internal Medicine
DX: S29.012A Strain of muscle and tendon of back wall of thorax, initial encounter (principal); S09.90XA Unspecified injury of head, initial encounter; W00.0XXA Fall on same level due to ice and snow, initial encounter; M25.512 Pain in left shoulder; M25.552 Pain in left hip; Y93.9 Activity, unspecified; Y92.410 Unspecified street and highway as the place of occurrence of the external cause; Y99.9 Unspecified external cause status; E11.8 Type 2 diabetes mellitus with unspecified complications; J45.909 Unspecified asthma, uncomplicated; F12.90 Cannabis use, unspecified, uncomplicated; F17.210 Nicotine dependence, cigarettes, uncomplicated; Z79.85 Long-term (current) use of injectable non-insulin antidiabetic drugs; Z79.84 Long term (current) use of oral hypoglycemic drugs
CPT/HCPCS: 70450; 72125; 72170; 73030; 99282; 99284

== ENCOUNTER → 2024-09-30 09:40 | Outpatient (BNV) | payer MEDICAID, SELFPAY | PROVIDERS: PCP Internal Medicine; Visit Provider Radiology Diagnostic Radiology | DX: M54.2 Cervicalgia (principal); S09.90XA Unspecified injury of head, initial encounter; M25.512 Pain in left shoulder; M25.551 Pain in right hip | CPT/HCPCS: 70450; 72125; 72170; 73030 ==

== ENCOUNTER 2024-10-23 09:41 | Emergency (ER) | payer MEDICAID, SELFPAY ==
--- NOTE | ~2024-10-23 | XR_ITS ---
EXAMINATION: XR SHOULDER, LEFT CLINICAL INFORMATION: fall on left shoulder COMPARISON: September 30, 2024. TECHNIQUE: AP external rotation, Grashey, scapular Y, and axillary views of the left shoulder. FINDINGS: No acute cortical disruption or malalignment. No lytic or blastic lesions. No metallic or radiopaque foreign body. Intervertebral body disc spacers in the lower cervical spine not included in this exam. XR/XR shoulder LT min 2V IMPRESSION: No acute fracture or dislocation, left shoulder. Electronically signed by: Flako Keating MD 10/23/2024 10:25 AM [facility]
[2024-10-23 09:46] VITALS: BP 128/83; PULSE 115; RESP 18; TEMP 36.6; O2SAT 97; BMI 34.8
--- NOTE | 2024-10-23 12:13 | ED.FALL ---
HPI - Fall General Chief Complaint: Fall Stated Complaint: fall, shoulder pain Time Seen by Provider: 10/23/24 11:09 Source: patient Mode of arrival: ambulatory Limitations: no limitations History of Present Illness ED Provider: RYAN RODRIGUEZ PA-C HPI Narrative: 38 year old male with pmhx bipolar disorder, anxiety, PTSD, and T2DM presents to the ED today for evaluation of left shoulder pain s/o mechanical slip and fall on ice this morning. He denies head strike or LOC. He is not on anticoagulation. He reports falling and landing on his left shoulder. Pain is localized to left shoulder, no radiation. Pain is exacerbated with movement of the left arm, primarily with extending and lifting. Denies numbness, tingling, weakness of the left upper extremity. He reports history of similar approximately 3 weeks ago where he slipped on ice and landed on his left shoulder. He was evaluated at that time with normal x-rays. Told to by a sling, rest the shoulder and follow-up outpatient. He did not do this. He has been applying icy hot to the area as needed for pain. Related Data Home Medications ?Medication ?Instructions ?Recorded ?Confirmed aripiprazole 10 mg tablet 10 mg PO QAM 02/26/24 02/27/24 dulaglutide 0.75 mg/0.5 mL 0.75 mg subcut SA 02/26/24 03/12/24 subcutaneous pen injector (Trulicity) empagliflozin 10 mg tablet 10 mg PO QAM 02/26/24 02/27/24 (Jardiance) glipizide 10 mg tablet 10 mg PO QAM 02/26/24 02/27/24 albuterol sulfate 90 mcg/actuation 2 puff inhalation Q4-6H PRN 02/27/24 02/27/24 aerosol inhaler (Ventolin HFA) Shortness Of Breath Or Wheezing metformin 500 mg tablet 500 mg PO QAM 02/27/24 02/27/24 Previous Rx's ?Medication ?Instructions ?Recorded cyclobenzaprine 10 mg tablet 10 mg PO TID PRN muscle spasm #20 09/30/24 tabs ondansetron 4 mg disintegrating 4 mg PO Q8H PRN nausea and 09/30/24 tablet vomiting #20 tabs cyclobenzaprine 5 mg tablet 5 mg PO Q8H PRN muscle pain #7 tabs 10/23/24 naproxen 500 mg tablet 500 mg PO Q12H PRN pain (scale 10/23/24 score 1-3) #20 tabs Allergies Allergy/AdvReac Type Severity Reaction Status Date / Time No Known Allergies Allergy Verified 10/23/24 09:48 [No Known Allergies*] [facility] Past Medical History Attestation statement: The following information was validated with the patient. Source: old records reviewed and nursing notes reviewed Medical History Snores Asthma Bipolar disorder Anxiety PTSD (post-traumatic stress disorder) Diabetes Surgical History No pertinent past surgical history Social History Social History Housing Other:: scheduled as extended stay post-op Are you a primary hearing care professional to a significant other at home: No Do you presently have visiting nurse or other home services: Yes (has outside professor of social work) Patient Tobacco Use Status: Former Tobacco user Tobacco use type: Cigarette Years Smoked: 15 Substance Use Type: Marijuana Advance Directives: No Advance Directives Information Provided: Yes Physical Exam Vital Signs: Vital Signs: Last Vital Signs Temp 98.1 F 10/23/24 12:23 Pulse 97 10/23/24 12:23 Resp 18 10/23/24 12:23 BP 143/100 H 10/23/24 12:23 Pulse Ox 96 10/23/24 12:23 O2 Del Method Room Air 10/23/24 12:23 BMI result Body Mass Index 34.8 hypertensive, tachycardic General: Well appearing, in no acute distress. Skin: Warm, dry, intact. No rashes or lesions. Head: Normocephalic, atraumatic. EENT: Hearing is intact b/l. Conjunctiva clear. PERRLA. EOM intact. Moist mucous membranes.? Neck: Supple without LAD Cardiac: Chest wall symmetric. RRR. Lungs: Normal respiratory effort without accessory muscle use. CTA bilaterally. Back: No midline spinous or paraspinal tenderness. No step off deformity. Ext: +left shoulder without overlying skin changes, deformity or swelling. Full ROM intact to left shoulder with pain on abduction and extension. diffusely ttp. sensation intact. 2+ radial/ulnar pulse intact. Neuro: AOx3. Normal speech. Strength 5/5 intact throughout. No saddle anesthesia. Sensation intact to light touch. NV intact distally. Ambulating with steady gait. Course Course Course Narrative: X-ray left shoulder does not demonstrate acute fracture or dislocation. Concern for strain versus rotator cuff injury. Patient was placed in sling for comfort. He does have a history of diabetes and is unsure if his sugars are well-controlled. he does not monitor these at home and is on at least 3 different medications for his diabetes. After discussion with patient, will hold on any prednisone at this time. Will send naproxen and Flexeril to pharmacy for treatment. Advised to follow up with either PCP or orthopedically impaired teacher. Referral provided. Patient has remained stable throughout ED visit today. Discussed worrisome signs and symptoms and when to return to the ED. All questions answered at this time. Patient is agreeable with disposition and stable for discharge. Procedures Orthopedic Splinting/Casting Injury #1: Side: left Upper Extremity Injury Location: shoulder Medical Decision Making Medical Decision Making MDM Narrative: 38 year old male with pmhx bipolar disorder, anxiety, PTSD, and T2DM presents to the ED today for evaluation of left shoulder pain s/o mechanical slip and fall on ice this morning. vital signs stable. hypertensive. he is nontoxic appearing and in NAD. on exam of left shoulder, no overlying skin changes, deformity or swelling. Full ROM intact to left shoulder with pain on abduction and extension. diffusely ttp. sensation intact. 2+ radial/ulnar pulse intact. Differential diagnosis includes contusion, msk sprain/strain, fracture, dislocation. unlikely nv compromise, threat to limb, compartment syndrome. Plan for imaging, pain control, and re-evaluation. Differential Diagnosis Differential Diagnoses: The differential diagnosis associated with the presentation includes as above. Admission/Observation not indicated. Independent Interpretation I performed an independent interpretation of an: Plain X-Ray Interpretation: XR left shoulder without acute fracture or dislocation Radiology Impression Discussion of test interpretation with radiology: I have reviewed the radiologist's reading. Radiologist Impression: Procedure(s): XR shoulder LT min 2V Accession Number(s): [id number] cc: Abdiel Atkinson MD; Generic ED Physician~ EXAMINATION: XR SHOULDER, LEFT CLINICAL INFORMATION: fall on left shoulder COMPARISON: September 30, 2024. TECHNIQUE: AP external rotation, Grashey, scapular Y, and axillary views of the left shoulder. FINDINGS: No acute cortical disruption or malalignment. No lytic or blastic lesions. No metallic or radiopaque foreign body. Intervertebral body disc spacers in the lower cervical spine not included in this exam. XR/XR shoulder LT min 2V IMPRESSION: No acute fracture or dislocation, left shoulder. Electronically signed by: Flako Keating MD 10/23/2024 10:25 AM [facility] [place] External Record Review External record reviewed: Inpatient record, Office record and Outpatient record Prescription Management I considered prescription management with: Pain Medication and Other (flexeril) Chronic Conditions Patient?s care impacted by: Diabetes Social Determinants Patient?s care significantly limited by Social Determinants of Health including: Other Social Determinant of Health Critical Care Time Critical Care Time Critical Care Time: No Discharge Plan Discharge Clinical Impression: Left shoulder strain Patient Disposition: Home, Self-Care Instructions: Muscle Strain (ED), Rotator Cuff Injury (ED), How to Use a Sling (ED), Rotator Cuff Injury Exercises (DC) Additional Instructions: You were evaluated in the ED today for your left shoulder pain after slipping and falling on ice. The x-ray of your left shoulder does not show acute fracture or dislocation. You likely strained the muscles within your left shoulder. You were placed in a sling for comfort. You may remove this to shower. As discussed, remove your arm from the sling multiple times a day and move your shoulder around to prevent frozen shoulder. I am sending an anti-inflammatory, naproxen, to your pharmacy. Do not take this with other anti-inflammatory such as Motrin as this can cause increased risk of GI bleeding. Flexeril is a muscle relaxer. Take this at night as it makes you drowsy. Do not drive, drink alcohol, or operate machinery while taking it. Please follow up with your primary care provider or orthopedically impaired teacher. If you do not have one, a referral has been provided to you. Call them to establish care. they will not call you. Return with any new or worsening symptoms. In the case of an emergency call 911. Prescriptions: New naproxen 500 mg tablet 500 mg PO Q12H PRN (Reason: pain (scale score 1-3)) Qty: 20 0RF cyclobenzaprine 5 mg tablet 5 mg PO Q8H PRN (Reason: muscle pain) Qty: 7 0RF No Action glipizide 10 mg tablet 10 mg PO QAM aripiprazole 10 mg tablet 10 mg PO QAM Jardiance 10 mg tablet 10 mg PO QAM Trulicity 0.75 mg/0.5 mL pen injector 0.75 mg subcut SA Rx Instructions: takes on Saturdays metformin 500 mg Tablet 500 mg PO QAM albuterol sulfate [Ventolin HFA] 90 mcg/actuation Hfa Aerosol Inhaler 2 puff INHALATION Q4-6H PRN (Reason: Shortness Of Breath Or Wheezing) cyclobenzaprine 10 mg tablet 10 mg PO TID PRN (Reason: muscle spasm) Qty: 20 0RF ondansetron 4 mg tablet,disintegrating 4 mg PO Q8H PRN (Reason: nausea and vomiting) Qty: 20 0RF Referrals: [facility] [place] [facility] [Provider Group] Abdiel Atkinson MD [Primary Care Provider] - Stand Alone Forms: Work/School Release Print Language: Kenyan
[2024-10-23 12:23] VITALS: BP 143/100; PULSE 97; RESP 18; TEMP 36.7; O2SAT 96
[2024-10-23] MEDS: Ibuprofen 600 MG TABLET PO (12:48)
[2024-10-23 12:55] VITALS: BP 143/100; PULSE 97; RESP 18; TEMP 36.7; O2SAT 96
== END 2024-10-23 12:56 | disposition home or self-care (01) ==
PROVIDERS: Emergency Provider Emergency Medicine; PCP Internal Medicine
DX: S46.912A Strain of unspecified muscle, fascia and tendon at shoulder and upper arm level, left arm, initial encounter (principal); W00.0XXA Fall on same level due to ice and snow, initial encounter; Y93.9 Activity, unspecified; Y92.9 Unspecified place or not applicable; Y99.9 Unspecified external cause status
CPT/HCPCS: 73030; 99283

== ENCOUNTER → 2024-10-23 10:00 | Outpatient (BNV) | payer MEDICAID, SELFPAY | PROVIDERS: PCP Internal Medicine; Visit Provider Radiology Diagnostic Radiology | DX: M25.512 Pain in left shoulder (principal) | CPT/HCPCS: 73030 ==

== ENCOUNTER 2024-11-28 09:56 | Outpatient (AMB) | payer MEDICAID, SELFPAY ==
--- NOTE | 2024-11-28 09:57 | MHC.OFFVIS ---
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 Patient reports slipped and fell on ice. He states that he fell on his shoulder which caused him sharp pain. ROM is very limited. Patient mentions that his pain is worse when lifting and haivng his blanket. Patient was given Naproxen with no relief and they gave him a sling. 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 Approximately, the problem originated after sustaining a fall on ice, impacting the left shoulder after an unsuccessful attempt to brace himself. Emergency room evaluation suggested the involvement of the rotator cuff. The patient presents with limitations in shoulder motion, experiencing significant pain and loss of function, particularly in lifting or pushing actions. The initial injury transpired earlier in the year before New Year?s, coinciding with another direct fall onto the shoulder. The patient has a background of diabetes mellitus with concerns regarding poor glycemic control; his most recent A1c was notably elevated at 10.4, impacting treatment options such as corticosteroid injections this visit. [facility] Medical History Snores Asthma Bipolar disorder Anxiety PTSD (post-traumatic stress disorder) Diabetes Surgical History No pertinent past surgical history Social History (Updated 11/28/24 @ 10:05 by Shiv Wright) Housing Other:: scheduled as extended stay post-op Are you a primary care information associate to a significant other at home: No Do you presently have visiting nurse or other home services: Yes (has outside social service worker) Alcohol intake: never Patient Tobacco Use Status: Former Tobacco user Tobacco use type: Cigarette Years Smoked: 15 Substance Use Type: Marijuana Current occupational status: employed 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 Pain with cross-body reach. 3/5 strength with empty can. Negative drop-arm. NVI. Assessment & Plan Assessment & Plan (1) Other injury of muscle(s) and tendon(s) of the rotator cuff of left shoulder, initial encounter: Code(s): S46.092A - Other injury of muscle(s) and tendon(s) of the rotator cuff of left shoulder, initial encounter Category: Medical Plan During our discussion, I explained the suspected involvement of the rotator cuff in the left shoulder injury and discussed options for managing pain and inflammation, highlighting the risks associated with cortisone injections given the patient's elevated A1c. I emphasized the importance of controlling diabetes before discussing potential surgical interventions. We discussed the benefits of initiating a course of physical therapy to improve range of motion and shoulder function, setting a follow-up appointment in six weeks. If that is the patient is not improving with physical therapy the next step would be to obtain an MRI for further evaluation and treatment of the shoulder and surrounding structures. The patient was advised to contact his primary care provider to address diabetes management urgently. X-rays of the left shoulder which were obtained on 10/23/2024 were reviewed by me, Re Caraballo PA-C, revealed no acute fracture or dislocation. Coding Level of Care Code New Pt Level 4 (46457) Diagnoses Other injury of muscle(s) and tendon(s) of the rotator cuff of left shoulder, initial encounter S46.092A
[2024-11-28 10:05] VITALS: BMI 34.8
== END 2024-11-28 11:09 | disposition home or self-care (01) ==
LOC: HO.HOS 09:57
PROVIDERS: PCP Internal Medicine; Visit Provider Physician Assistant
DX: S46.092A Other injury of muscle(s) and tendon(s) of the rotator cuff of left shoulder, initial encounter (principal); E11.9 Type 2 diabetes mellitus without complications
CPT/HCPCS: 99204

== ENCOUNTER → 2024-11-28 09:56 | Outpatient (BNVA) | payer MEDICAID, SELFPAY | PROVIDERS: PCP Internal Medicine; Visit Provider Physician Assistant | DX: S46.092A Other injury of muscle(s) and tendon(s) of the rotator cuff of left shoulder, initial encounter (principal) | CPT/HCPCS: 99212 ==